=== PATIENT | female | born 1975 | race Caucasian/White ===

== ENCOUNTER → 2020-07-07 16:02 | Outpatient (CLI) | payer OTHER, SELFPAY ==
--- NOTE | ~2020-07-07 | MM_ITS ---
EXAMINATION: MM screening kory BI w katrina HISTORY: Screening mammogram TECHNIQUE: Craniocaudal and mediolateral oblique 3-D tomosynthesis images were obtained and synthetic 2-D images were generated. CAD analysis was submitted and interpreted. COMPARISON: 03/13/2014 bilateral digital screening mammogram BREAST PARENCHYMAL COMPOSITION: There are scattered areas of fibroglandular density. FINDINGS: Mild bilateral stable asymmetry consistent with history of bilateral breast reduction in 20 07. There is no evidence of suspicious mass, calcification, or architectural distortion to suggest ma lignancy in either breast. There has been no suspicious interval change. IMPRESSION: 1. No mammographic evidence of malignancy. 2. Recommend routine screening mammography in one year. BI-RADS Category 2: Benign finding(s). Reviewed, dictated and finalized at location A. BUTCHER
== END ==
PROVIDERS: PCP Internal Medicine; Visit Provider Obstetrics & Gynecology
DX: Z12.31 Encounter for screening mammogram for malignant neoplasm of breast (principal)
CPT/HCPCS: 77063; 77067

== ENCOUNTER 2021-05-20 04:37 | Emergency (ER) | payer OTHER, SELFPAY ==
[2021-05-20] VITALS (8 sets, daily range): BP systolic 86–118; BP diastolic 54–79; PULSE 58–78; RESP 16–20; TEMP 36.9–37.2; O2SAT 93–98
--- NOTE | ~2021-05-20 | CT_ITS ---
EXAMINATION: CTA chest PE protocol DATE: 05/20/2021 08:04 INDICATION: Elevated d-dimer. COVID positive. TECHNIQUE: Computed tomography angiography (CTA) of the chest was performed with 100 mL Omnipaque-350 intravenous contrast timed to evaluate the pulmonary arteries. Coronal maximum intensity projection 3D-reconstructions were created by the technologist. Automated exposure control and iterative reconst ruction technique were employed. Exam dose: 663.14 mGy-cm total exam DLP. COMPARISON: None. FINDINGS: There is diagnostic contrast enhancement of the pulmonary arteries. There is minimal left lower lobe subsegmental pulmonary embolism. There is a focal approximately 1.6 cm area of consolidation versus mass lesion in the right upper lob e. There is an irregular area of consolidation versus mass lesion in the right lower lobe at the posteri or right infrahilar area. There is focal infiltrate and/or atelectasis in the superior segment, posterolateral right lower lobe . There is an approximately 11 x 14 mm area of consolidation or pulmonary mass lesion in the left infra hilar area. There is posterior pleural-based inferior left lower lobe consolidation. There is mild bilateral hilar and mediastinal lymph node prominence, likely reactive. Normal heart size. No pericardial or pleural effusion. No thoracic aortic aneurysm. The adrenal glands are of normal morphology. IMPRESSION: Minimal left lower lobe pulmonary embolism Focal areas of bilateral pulmonary consolidation versus mass lesion(s); short-term follow-up CT thora x imaging is recommended. Reviewed, dictated and finalized at Location A. Reviewed, dictated and finalized at location A. F ACCOUNTANT IMPRESSION: Minimal left lower lobe pulmonary embolism Focal areas of bilateral pulmonary consolidation versus mass lesion(s); short-t erm follow-up CT thorax imaging is recommended.
--- NOTE | 2021-05-20 04:59 | ED.WEAKNESS ---
HPI - Weakness General Chief complaint: Weakness Stated complaint: weakness Time Seen by Provider: 05/20/21 04:59 Source: patient History of Present Illness HPI Narrative: 45-year-old female with a history of endometriosis, primary infertility, iron deficiency anemia, COVID diagnosed 7 days ago with upper respiratory symptoms for the past 14 days presents to the ER with -- generalized weakness -- nausea with 2 episodes of vomiting -- feels dehydrated with dry mouth Complaint: generalized weakness Onset (ago): hour(s) ( started an hour ago when she woke) Duration: constant Location: generalized Migration: none Severity: mild Relieving factors: none Exacerbating factors: none Associated symptoms: nausea/vomiting Related Data Home Medications Medication Instructions Recorded Confirmed ferrous sulfate 325 mg PO DAILY 05/20/21 05/22/21 omeprazole 20 mg PO DAILY 05/20/21 05/31/21 topiramate 100 mg PO ONCE 05/20/21 05/31/21 Allergies Allergy/AdvReac Type Severity Reaction Status Date / Time amoxicillin Allergy Unknown Verified 05/31/21 12:30 tramadol Allergy Unknown Verified 05/31/21 12:30 Review of Systems Review of Systems: All systems reviewed & are unremarkable except as noted in HPI and below Constitutional: Constitutional: Reports as per HPI and Reports no additional constitutional complaints Eyes: Eyes: Reports as per HPI and Reports no additional eye complaints ENT: Reports system reviewed and no additional complaints, except as documented Cardiovascular: Cardiovascular: Reports as per HPI and Reports no additional cardiovascular complaints Respiratory: Respiratory: Reports as per HPI and Reports no additional respiratory complaints Gastrointestinal: Gastrointestinal: Reports as per HPI, Reports nausea and Reports vomiting Genitourinary: Genitourinary: Reports no additional female genitourinary complaints Musculoskeletal: Musculoskeletal: Reports no additional musculoskeletal complaints Integumentary/Breasts: Skin/Breast: Reports system reviewed and no additional complaints, except as docu Neurologic: Reports system reviewed and no additional complaints, except as documented Psychiatric: Psychiatric: Reports no additional psychiatric complaints Endocrine: Endocrine: Reports no additional endocrine complaints Hematologic/Lymphatic: Hematologic/Lymphatic: Reports no additional hematologic/lymphatic complaints Allergic/Immunologic: Allergic/Immunologic: Reports no additional allergic/immunologic complaints PMFSH Past Medical History Medical History Endometriosis Iron deficiency anemia Exam Const: General: no acute distress HENMT: Head: normal to inspection Eyes: Conjunctivae: conjunctivae normal Pupils: Equal, round and reactive pupils present Neck: Neck: normal visual inspection Chest: Chest palpation & inspection: normal inspection of the chest Resp: Effort & Inspection: normal respiratory effort Auscultation: clear to auscultation bilaterally Cardio: Rate: regular rate Rhythm: regular rhythm GI: GI Palp: Yes Soft to palpation : General: Yes no CVA tenderness Back/Spine/Pelvis: Back: no CVA tenderness Skin: General skin exam: normal color Rashes: no rashes Neuro: General: patient oriented x3, moves all extremities, no meningeal signs and no focal motor deficits Speech: normal speech Extrem: General: normal to inspection Psych: Appearance: grossly normal Mental Status: mental status grossly normal Thought content: Yes Normal thought content present Course Course Emergency Course: patient's stay in the ER was unremarkable. patient remained afebrile and hemodynamically stable. Vital Signs Vital signs: Vital Signs Temperature 36.9 C 05/20/21 04:57 Pulse Rate 58 L 05/20/21 04:57 Respiratory Rate 16 05/20/21 04:57 Blood Pressure 86/54 L 05/20/21 04:57 Pulse Oximetry 95 05/20/21 04:5
--- NOTE | 2021-05-20 05:15 | ECG_ITS ---
Measurements Intervals [place] Rate: 67 P: 35 IA: 144 QRS: 1 QRSD: 102 T: -9 QT: 402 QTc: 425 Interpretive Statements SINUS RHYTHM MINIMAL Q WAVES- HIGH LATERAL LEADS BORDERLINE ST-T WAVE ABNORMALITY- INFERIOR LEADS BORDERLINE ECG Electronically Signed On 05-20-2021 9:09:00 VALVE MAKER by Kashif Crowell D.O.
[2021-05-20 06:01] LABS: Hematocrit 39.1 % (35.0-49.0); Hemoglobin 11.6 g/dL (12.0-15.0); Mean Corpuscular HGB Conc 29.7 g/dL (32.0-36.0); Mean Corpuscular Volume 77.6 fL (78.0-102.0); Platelet Count Result 232 K/mm3 (150-420); Red Blood Count 5.04 M/mm3 (4.20-5.40); Red Cell Distribution Width 15.7 % (11.6-14.4); White Blood Count 3.7 K/mm3 (4.8-10.8)
[2021-05-20] MEDS: LACTATED RINGERS 1,000 ML 1000 ML IV CONT (06:06)
[2021-05-20 06:15] LABS: Alanine Aminotransferase 97 U/L (14-59); Albumin Level 3.4 g/dL (3.4-5.0); Alkaline Phosphatase 172 U/L (46-116); Anion Gap 11 mmol/L (8-16); Aspartate Amino Transferase 45 U/L (15-37); Bilirubin,Total 0.2 mg/dL (0.00-1.00); Blood Urea Nitrogen 10 mg/dL (7-18); CRP 0.5 mg/dL (0.0-0.9); Calcium 8.5 mg/dL (8.5-10.1); Carbon Dioxide 22 mmol/L (21-32); Chloride 108 mmol/L (98-108); Estimated CRCL calculation 74 ml/min; Estimated Glomerular Filt Rate > 60; Ferritin 23 ng/mL (8-252); Glucose 107 mg/dL (70-99); Osmolality Calculated 291 mOsm/kg (285-295); Potassium 3.8 mmol/L (3.5-5.1); Sodium 141 mmol/L (136-145); Total Protein 6.7 g/dL (6.4-8.2); Troponin I 4.3 ng/L (0.00-60.4)
[2021-05-20 06:19] LABS: D Dimer 0.56 mg/L (0.19-0.50)
[2021-05-20 06:20] LABS: NT Pro B Type Natriuretic Pept 109 pg/mL (0-125)
[2021-05-20 06:30] LABS: SARS-CoV-2 RNA PCR Positive (Negative)
[2021-05-20 06:32] LABS: Band Neutrophils Percent 0 % (0-6); Lymphocytes Absolute Manual 1.18 K/mm3 (1.1-4.5); Lymphocytes Percent Manual 32 % (18-44); Neutrophils Absolute Manual 2.33 K/mm3 (1.7-7.2); Neutrophils Percent Manual 63 % (46-73); Total Cells Counted 100
[2021-05-20 06:33] LABS: Basophils Percent Manual 0 % (0-1); Eosinophils Percent Manual 0 % (1-6); Monocytes Absolute Manual 0.14 K/mm3 (0.1-0.90); Monocytes Percent Manual 4 % (3-9); Platelet Estimate Adequate (Adequate)
[2021-05-20 06:58] LABS: Add Urine Microscopic? NO; Appearance Urine Clear (Clear); Bilirubin Urine Negative (Negative); Blood Urine Negative (Negative); Color Urine Yellow (Yellow); Glucose Urine UA Negative (Negative); Ketones Urine Negative (Negative); Leukocyte Esterase Ur Negative (Negative); Nitrate Urine Negative (Negative); Protein Urine Negative (Negative); Urobilinogen Urine 0.2 mg/dL (0.2-1.0); pH Urine 5.5 (5.0-8.0)
[2021-05-20 07:00] LABS: Pregnancy On Board Control Positive; Urine Pregnancy Test Negative
--- NOTE | 2021-05-20 08:04 | ED.FALL ---
- Fall General Chief Complaint: Weakness Stated Complaint: weakness Time Seen by Provider: 05/20/21 04:59 Source: patient Mode of arrival: ambulatory Limitations: no limitations Related Data Home Medications Medication Instructions Recorded Confirmed ferrous sulfate 325 mg PO DAILY 05/20/21 05/20/21 omeprazole 20 mg PO DAILY 05/20/21 05/20/21 topiramate 100 mg PO ONCE 05/20/21 05/20/21 Allergies Allergy/AdvReac Type Severity Reaction Status Date / Time No Known Allergies Allergy Verified 03/19/13 08:03 [facility] Past Medical History Medical History (Updated 05/20/21 @ 07:04 by Yasmani Sepulveda MD) Endometriosis Iron deficiency anemia Course Vital Signs Vital signs: Vital Signs Temperature 36.9 C 05/20/21 04:57 Pulse Rate 58 L 05/20/21 04:57 Respiratory Rate 16 05/20/21 04:57 Blood Pressure 86/54 L 05/20/21 04:57 Pulse Oximetry 95 05/20/21 04:57 Temperature 36.9 C 05/20/21 04:57 Pulse Rate 66 05/20/21 06:08 Respiratory Rate 16 05/20/21 05:08 Blood Pressure 86/54 L 05/20/21 04:57 Pulse Oximetry 95 05/20/21 05:08 - Fall Lab Data Result diagrams: 05/20/21 05:31 05/20/21 05:31 Labs: Lab Results 05/20/21 05/20/21 05/20/21 Range/Units 05:31 05:31 05:31 WBC 3.7 L (4.8-10.8) K/mm3 RBC 5.04 (4.20-5.40) M/mm3 Hgb 11.6 L (12.0-15.0) g/dL Hct 39.1 (35.0-49.0) % MCV 77.6 L (78.0-102.0) fL MCH 23.0 L (27.0-31.0) pg MCHC 29.7 L (32.0-36.0) g/dL RDW 15.7 H (11.6-14.4) % Plt Count 232 (150-420) K/mm3 MPV 10.0 (9.2-11.8) fl Immature Gran % (Auto) Not Reportable Neut % (Auto) Not Reportable Lymph % (Auto) Not Reportable [place] % (Auto) Not Reportable Eos % (Auto) Not Reportable Baso % (Auto) Not Reportable Lymph # (Auto) Not Reportable [place] # (Auto) Not Reportable Eos # (Auto) Not Reportable Baso # (Auto) Not Reportable Abs Immat Gran (auto) Not Reportable Absolute Neuts (auto) Not Reportable Absolute Nucleated RBC Not Reportable Total Counted 100 Neutrophils % (Manual) 63 (46-73) % Band Neutrophils % 0 (0-6) % Lymphocytes % (Manual) 32 (18-44) % Monocytes % (Manual) 4 (3-9) % Eosinophils % (Manual) 0 L (1-6) % Basophils % (Manual) 0 (0-1) % Nucleated RBC % Not Reportable Abs Neuts (Manual) 2.33 (1.7-7.2) K/mm3 Abs Lymphs (Manual) 1.18 (1.1-4.5) K/mm3 Abs Monocytes (Manual) 0.14 (0.1-0.90) K/mm3 Absolute Eos (Manual) 0.00 L (0.02-0.5) K/mm3 Abs Basophils (Manual) 0.00 (0-0.1) K/mm3 Platelet Estimate Adequate (Adequate) D-Dimer (0.19-0.50) mg/L Sodium (136-145) mmol/L Potassium (3.5-5.1) mmol/L Chloride (98-108) mmol/L Carbon Dioxide (21-32) mmol/L Anion Gap (8-16) mmol/L BUN (7-18) mg/dL Creatinine (0.55-1.02) mg/dL Estim Creat Clear Calc ml/min Estimated GFR (59 - ) Glucose (70-99) mg/dL Calculated Osmolality (285-295) mOsm/kg Calcium (8.5-10.1) mg/dL Ferritin (8-252) ng/mL Total Bilirubin (0.00-1.00) mg/dL AST (15-37) U/L ALT (14-59) U/L Alkaline Phosphatase (46-116) U/L Troponin I (0.00-60.4) ng/L C-Reactive Protein (0.0-0.9) mg/dL NT-Pro-B Natriuret Pep 109 (0-125) pg/mL Total Protein (6.4-8.2) g/dL Albumin (3.4-5.0) g/dL Urine Color (Yellow) Urine Appearance (Clear) Urine pH (5.0-8.0) Ur Specific [place] (1.010-1.020) Urine Protein (Negative) Urine Glucose (UA) (Negative) Urine Ketones (Negative) Ur Blood (Man) (Negative) Urine Nitrate (Negative) Urine Bilirubin (Negative) Urine Urobilinogen (0.2-1.0) mg/dL Ur Leukocyte Esterase (Negative) Urine Test SARS-CoV-2 RNA (RT-PCR) Positive A (Negative) 05/20/21 05/20/21 05/20/21 Range/Uni
[2021-05-20] MEDS: SODIUM CHLORIDE 0.9% IV 1,000 ML 999 ML IV CONT (08:55)
[2021-05-20 10:45] LABS: Partial Thromboplastin Time 27.4 SEC (23.90-30.70); Prothrombin Time 10.5 Seconds (9.50-12.10)
== END 2021-05-20 11:00 | disposition home or self-care (01) ==
PROVIDERS: Internal Medicine Critical Care Medicine; Emergency Provider Emergency Medicine; PCP Internal Medicine
DX: U07.1 COVID-19 (principal); R74.01 Elevation of levels of liver transaminase levels
CPT/HCPCS: 36415; 71275; 80053; 81003; 81025; 82728; 83880; 84484; 85025; 85380; 85610; 85730; 86140; 93005; 96360; 96361; 99283; 99284; C9803; J7030; J7120; Q9967; U0003; U0005

== ENCOUNTER 2021-05-22 19:57 | Emergency (ER) | payer OTHER, SELFPAY ==
--- NOTE | ~2021-05-22 | CT_ITS ---
EXAMINATION: CT abdomen pelvis w con INDICATION: Weakness, persistent nausea TECHNIQUE: Computed tomographic images of the abdomen and pelvis were obtained after the administrati on of 100 cc of Omnipaque 350 intravenous contrast. The dose-length product (DLP) was 1007.82 mGy-cm. Automated exposure control and iterative reconstruction technique were employed. COMPARISON: None available FINDINGS: There are dependent airspace opacities of the left lower lobe. The liver, spleen, pancreas, gallbladder, and adrenal glands are normal. There is a 3 mm nonobstructing stone of the left kidney lower pole. The right kidney is unremarkable. No pathologically enlarged abdominal or pelvic lymph no elliott are identified. There is no free intraperitoneal gas or evidence of bowel obstruction. The append ix is normal. IMPRESSION: 1. No CT correlate for the patient's symptoms. Reviewed, dictated and finalized at location F. ABORATING SUPERVISING PHYSICIAN
[2021-05-22 20:29] VITALS: BP 108/68; PULSE 53; RESP 18; TEMP 37; O2SAT 95
[2021-05-22 21:14] LABS: Basophils Absolute Auto 0.02 K/mm3 (0.00-0.10); Basophils Percent Auto 0.3 % (0.0-1.0); Eosinophils Absolute Auto 0.09 K/mm3 (0.02-0.50); Eosinophils Percent Auto 1.4 % (1.0-6.0); Hematocrit 38.7 % (35.0-49.0); Hemoglobin 11.5 g/dL (12.0-15.0); Immature Granulocyte Absolute 0.01 K/mm3 (0.00-0.00); Immature Granulocyte Percent A 0.2 % (0.0-0.0); Lymphocytes Absolute Auto 2.64 K/mm3 (1.10-4.50); Lymphocytes Percent Auto 42.2 % (18.0-42.0); Mean Corpuscular HGB Conc 29.7 g/dL (32.0-36.0); Mean Corpuscular Volume 77.6 fL (78.0-102.0); Mean Platelet Volume 9.2 fl (9.2-11.8); Monocytes Absolute Auto 0.32 K/mm3 (0.10-0.90); Monocytes Percent Auto 5.1 % (2.0-11.0); Neutrophils Absolute Auto 3.2 K/mm3 (1.7-7.2); Neutrophils Percent Auto 50.8 % (50.0-70.0); Platelet Count Result 285 K/mm3 (150-420); Red Blood Count 4.99 M/mm3 (4.20-5.40); Red Cell Distribution Width 15.7 % (11.6-14.4); White Blood Count 6.3 K/mm3 (4.8-10.8)
[2021-05-22] MEDS: ONDANSETRON INJ 4 MG/2 ML VIAL IV PUSH (21:14)
[2021-05-22 21:15] VITALS: PULSE 52
[2021-05-22] MEDS: PANTOPRAZOLE SODIUM IV 40 MG VIAL IV PUSH (21:15)
[2021-05-22] MEDS: SODIUM CHLORIDE 0.9% IV 1,000 ML 999 ML IV CONT (21:15)
[2021-05-22 21:24] LABS: Add Urine Microscopic? NO; Appearance Urine Clear (Clear); Bilirubin Urine Negative (Negative); Blood Urine Negative (Negative); Color Urine Light Yellow (Yellow); Glucose Urine UA Negative (Negative); Ketones Urine Negative (Negative); Leukocyte Esterase Ur Negative (Negative); Nitrate Urine Negative (Negative); Protein Urine Negative (Negative); Urobilinogen Urine 0.2 mg/dL (0.2-1.0)
[2021-05-22 21:29] LABS: Alanine Aminotransferase 68 U/L (14-59); Albumin Level 3.5 g/dL (3.4-5.0); Alkaline Phosphatase 152 U/L (46-116); Anion Gap 10 mmol/L (8-16); Aspartate Amino Transferase 28 U/L (15-37); Bilirubin,Total 0.3 mg/dL (0.00-1.00); Blood Urea Nitrogen 12 mg/dL (7-18); Carbon Dioxide 27 mmol/L (21-32); Chloride 108 mmol/L (98-108); Estimated CRCL calculation 75 ml/min; Estimated Glomerular Filt Rate > 60; Glucose 98 mg/dL (70-99); Lipase 163 U/L (73-393); Osmolality Calculated 299 mOsm/kg (285-295); Potassium 3.6 mmol/L (3.5-5.1); Sodium 145 mmol/L (136-145); Total Protein 6.9 g/dL (6.4-8.2)
[2021-05-22 21:35] LABS: Calcium 8.8 mg/dL (8.5-10.1); Serum Qual hCG Negative
[2021-05-22 21:36] LABS: SPREG INTERNAL CONTROL Positive
--- NOTE | 2021-05-22 23:12 | ED.WEAKNESS ---
HPI - Weakness General Chief complaint: Weakness Stated complaint: dehydrated Time Seen by Provider: 05/22/21 20:01 Source: patient, family and RN notes reviewed Mode of arrival: ambulatory Limitations: no limitations History of Present Illness HPI Narrative: mostly nausea and diarrhea stools. no acute vomiting or documented fever. Onset (ago): day(s) (1) Duration: progressively worsening Migration: none Severity: mild Severity scale (1-10): 4 Relieving factors: none Exacerbating factors: none Associated symptoms: headaches, nausea/vomiting and other (diarrhea.) Related Data Home Medications Medication Instructions Recorded Confirmed ferrous sulfate 325 mg PO DAILY 05/20/21 05/22/21 omeprazole 20 mg PO DAILY 05/20/21 05/22/21 topiramate 100 mg PO ONCE 05/20/21 05/22/21 Allergies Allergy/AdvReac Type Severity Reaction Status Date / Time No Known Allergies Allergy Verified 03/19/13 08:03 Review of Systems Review of Systems: All systems reviewed & are unremarkable except as noted in HPI and below PMFSH Past Medical History Medical History Endometriosis Iron deficiency anemia Exam Const: General: healthy appearing, no acute distress and alert Nutritional Appearance: well nourished Orientation/consciousness: patient oriented x3 Limitations: no limitations HENMT: Head: normal to inspection Ears: external ears normal and TM's normal bilaterally General nose exam: Normal external nose present and Normal nares present Mouth: Yes lip normal and Yes moist mucous membranes Teeth and gingiva: dentition normal Eyes: Conjunctivae: conjunctivae normal Pupils: Equal, round and reactive pupils present EOM: EOMs intact bilaterally Neck: Neck: normal visual inspection and no lymphadenopathy Chest: Chest palpation & inspection: normal inspection of the chest Resp: Effort & Inspection: normal respiratory effort Auscultation: clear to auscultation bilaterally Cardio: Rate: regular rate Rhythm: regular rhythm GI: GI Palp: Yes Soft to palpation and No Tenderness to palpation present (GI) Percussion: Yes normal to percussion Auscultation: normal bowel sounds : General: Yes bladder normal to palpation and Yes no CVA tenderness Back/Spine/Pelvis: Back: no CVA tenderness Skin: General skin exam: normal color Rashes: no rashes Neuro: General: patient oriented x3, moves all extremities, no meningeal signs, no focal motor deficits and CN's II-XI intact bilaterally Extrem: General: normal to inspection and no pedal edema Psych: Appearance: grossly normal and well kempt Mental Status: mental status grossly normal Affect: normal affect Attitude: cooperative Thought content: Yes Normal thought content present Course Course Emergency Course: Pt was stable in the ED. no acute GI loss. Reevaluation(s) Reevaluation #1: VSS. no acute pain. no GI loss. Date: 05/22/21 Time: 21:05 Vital Signs Vital signs: Vital Signs Temperature 37.0 C 05/22/21 20:29 Pulse Rate 53 L 05/22/21 20:29 Respiratory Rate 18 05/22/21 20:29 Blood Pressure 108/68 05/22/21 20:29 Pulse Oximetry 95 05/22/21 20:29 Temperature 36.7 C 05/23/21 00:08 Pulse Rate 54 L 05/23/21 00:08 Respiratory Rate 14 05/23/21 00:08 Blood Pressure 132/77 05/23/21 00:08 Pulse Oximetry 98 05/23/21 00:08 MDM - Weakness Differential Diagnosis Differential diagnosis: Likely anemia and dehydration Medical Records Attestation: I reviewed the patient's medical records. Lab Data Attestation: I reviewed the patient's lab results. Result diagrams: 05/22/21 20:56 05/22/21 20:56 Labs: Lab Results 05/22/21 05/22/21 05/22/21 Range/Units 20:56 20:56 21:21 WBC 6.3 (4.8-10.8) K/mm3 RBC 4.99 (4.20-5.40) M/mm3 Hgb 11.5 L (12.0-15.0) g/dL Hct 38.7 (35.0-49.0) % MCV 77.6 L (78.0-102.0) fL MCH 23.0 L (27.0-31.
[2021-05-22] MEDS: ACETAMINOPHEN 325 MG TABLET 650 MG PO (23:41)
[2021-05-23 00:08] VITALS: BP 132/77; PULSE 54; RESP 14; TEMP 36.7; O2SAT 98
== END 2021-05-23 00:13 | disposition home or self-care (01) ==
PROVIDERS: Emergency Provider Emergency Medicine; PCP Internal Medicine
DX: K52.9 Noninfective gastroenteritis and colitis, unspecified (principal)
CPT/HCPCS: 36415; 74177; 80053; 81003; 83690; 84703; 85025; 96361; 96374; 96375; 99283; 99284; A9270; C9113; J2405; J7030; Q9967

== ENCOUNTER 2021-05-31 12:02 | Emergency (ER) | payer OTHER, SELFPAY ==
--- NOTE | ~2021-05-31 | CT_ITS ---
EXAMINATION: CTA chest PE protocol DATE: 05/31/2021 13:18 INDICATION: COVID positive. Left arm/axillary pain. Recent pulmonary embolism. TECHNIQUE: Computed tomography (CT) pulmonary angiogram of the chest was performed with 100 mL Omnipa que-350 intravenous contrast. Additional 3D reconstructions utilizing coronal maximum intensity proje ction (MIP) were performed. Automated exposure control and iterative reconstruction technique were em ployed. The dose-length product was 764.26 mGy-cm. COMPARISON: 05/20/2021 FINDINGS: Excellent contrast opacification of the pulmonary arteries. There is mild streak artifact from dense contrast in the superior vena cava and right atrium. Minimal scattered respiratory motion artifact wh ich does not significantly limit evaluation. No pulmonary embolism. Near complete resolution of the p rior bilateral patchy groundglass opacities with minimal residual opacities at the site of a prior la rger more dense region of consolidation in the left lower lobe consistent with improving pneumonia. No new airspace opacities, pulmonary edema or pleural effusion. Heart size is normal. No pericardial effusion. Thoracic aorta is normal in caliber with no dissection. No pathologically enlarged thoracic lymphadenopathy. IMPRESSION: 1. No pulmonary embolism. 2. Near complete resolution of prior patchy bilateral lung disease with minimal residual opacities in the posterior left lower lobe consistent with improving pneumonia. Reviewed, dictated and finalized at location B. EYOR HELPER
[2021-05-31 12:23] VITALS: BP 125/72; PULSE 57; RESP 18; TEMP 36.1; O2SAT 97
--- NOTE | 2021-05-31 12:31 | ECG_ITS ---
Measurements Intervals [place] Rate: 56 P: 55 FL: 153 QRS: 25 QRSD: 105 T: 14 QT: 422 QTc: 410 Interpretive Statements SINUS BRADYCARDIA DELAYED PRECORDIAL R/S TRANSITION MINIMAL Q WAVES- HIGH LATERAL LEADS BORDERLINE ST-T WAVE ABNORMALITY- ANT/INF LEADS BORDERLINE ECG Electronically Signed On 05-31-2021 13:28:44 HEALTH PROFESSOR by Kashif Crowell D.O.
[2021-05-31 13:06] LABS: Basophils Absolute Auto 0.06 K/mm3 (0.00-0.10); Basophils Percent Auto 0.9 % (0.0-1.0); Eosinophils Absolute Auto 0.14 K/mm3 (0.02-0.50); Eosinophils Percent Auto 2.2 % (1.0-6.0); Hematocrit 40.1 % (35.0-49.0); Hemoglobin 11.9 g/dL (12.0-15.0); Immature Granulocyte Absolute 0.02 K/mm3 (0.00-0.00); Immature Granulocyte Percent A 0.3 % (0.0-0.0); Lymphocytes Absolute Auto 2.02 K/mm3 (1.10-4.50); Mean Corpuscular HGB Conc 29.7 g/dL (32.0-36.0); Mean Corpuscular Hemoglobin 22.8 pg (27.0-31.0); Mean Corpuscular Volume 76.8 fL (78.0-102.0); Mean Platelet Volume 9.6 fl (9.2-11.8); Monocytes Absolute Auto 0.47 K/mm3 (0.10-0.90); Monocytes Percent Auto 7.2 % (2.0-11.0); Neutrophils Absolute Auto 3.8 K/mm3 (1.7-7.2); Neutrophils Percent Auto 58.4 % (50.0-70.0); Platelet Count Result 366 K/mm3 (150-420); Red Blood Count 5.22 M/mm3 (4.20-5.40); Red Cell Distribution Width 15.8 % (11.6-14.4); White Blood Count 6.5 K/mm3 (4.8-10.8)
[2021-05-31] MEDS: ACETAMINOPHEN 500 MG TABLET 1000 MG PO (13:17)
[2021-05-31 13:20] LABS: Partial Thromboplastin Time 29.6 SEC (23.90-30.70)
[2021-05-31 13:24] LABS: Alanine Aminotransferase 114 U/L (14-59); Albumin Level 3.9 g/dL (3.4-5.0); Alkaline Phosphatase 175 U/L (46-116); Anion Gap 12 mmol/L (8-16); Aspartate Amino Transferase 47 U/L (15-37); Bilirubin,Total 0.3 mg/dL (0.00-1.00); Blood Urea Nitrogen 14 mg/dL (7-18); Calcium 9.7 mg/dL (8.5-10.1); Carbon Dioxide 24 mmol/L (21-32); Chloride 106 mmol/L (98-108); Estimated CRCL calculation 81 ml/min; Estimated Glomerular Filt Rate > 60; Glucose 101 mg/dL (70-99); Osmolality Calculated 294 mOsm/kg (285-295); Sodium 142 mmol/L (136-145); Total Protein 7.5 g/dL (6.4-8.2)
--- NOTE | 2021-05-31 13:35 | ED.EXTPRO ---
HPI - Extremity Problem General Chief complaint: Extremity Problem,Nontraumatic Stated complaint: throbbing in left and armpit Source: patient and family Mode of arrival: ambulatory Limitations: no limitations History of Present Illness HPI Narrative: this is a 45-year-old female that was recently diagnosed with a pulmonary embolism and was started on apixaban, presents with a aching and throbbing sensation under her left arm there is no redness no swelling no abscess formation no cysts, patient has been working out and caused pain to her left underarm, currently there is no shortness of breath no fever chills no chest pain or tightness no nausea vomiting no abdominal pain no flank pain has good range of motion in her left arm although it is tender under the left arm. There is no numbness or tingling has good range of motion, has brisk pulses on the left, with no swelling no redness in the left arm. Complaint: extremity pain Onset (ago): day(s) Pain Consistency: intermittent Location: left and upper extremity Severity scale (1-10): 3 Quality: aching Related Data Home Medications Medication Instructions Recorded Confirmed ferrous sulfate 325 mg PO DAILY 05/20/21 05/22/21 omeprazole 20 mg PO DAILY 05/20/21 05/31/21 topiramate 100 mg PO ONCE 05/20/21 05/31/21 Allergies Allergy/AdvReac Type Severity Reaction Status Date / Time amoxicillin Allergy Unknown Verified 05/31/21 12:30 tramadol Allergy Unknown Verified 05/31/21 12:30 Review of Systems Review of Systems: All systems reviewed & are unremarkable except as noted in HPI and below PMFSH Past Medical History Medical History Endometriosis Iron deficiency anemia Exam Const: General: no acute distress and alert Orientation/consciousness: patient oriented x3 HENMT: Head: normal to inspection Eyes: Conjunctivae: conjunctivae normal Pupils: Equal, round and reactive pupils present EOM: EOMs intact bilaterally Direct Ophthalmoscopy: no photophobia Neck: Neck: normal visual inspection, no lymphadenopathy and no meningeal signs Chest: Chest palpation & inspection: normal inspection of the chest Resp: Effort & Inspection: normal respiratory effort Auscultation: clear to auscultation bilaterally Cardio: Rate: regular rate Rhythm: regular rhythm GI: GI Palp: Yes Soft to palpation : General: Yes no CVA tenderness Urinary Catheter: Urinary Catheter: patent and draining Back/Spine/Pelvis: Back: no CVA tenderness Skin: General skin exam: normal color Rashes: no rashes Extrem: General: normal to inspection and no pedal edema Other: Has mild tenderness with palpation under her left arm Psych: Mental Status: mental status grossly normal Affect: normal affect Course Course Emergency Course: CTA reviewed with patient and family, review showing that pulmonary embolism is resolved there is currently no pulmonary embolism and had some opacities that are resolving as well, reviewed lab findings, advised patient to continue her current dose of apixaban, and to take Tylenol extra-strength 2 to 3 times daily as needed and follow up with her primary within 1 week for further evaluation and treatment. Vital Signs Vital signs: Vital Signs Temperature 36.1 C L 05/31/21 12:23 Pulse Rate 57 L 05/31/21 12:23 Respiratory Rate 18 05/31/21 12:23 Blood Pressure 125/72 05/31/21 12:23 Pulse Oximetry 97 05/31/21 12:23 Temperature 36.1 C L 05/31/21 12:23 Pulse Rate 57 L 05/31/21 12:23 Respiratory Rate 18 05/31/21 12:23 Blood Pressure 125/72 05/31/21 12:23 Pulse Oximetry 97 05/31/21 12:23 MDM - Extremity (Nontraumatic) Lab Data Result diagrams: 05/31/21 12:59 05/31/21 12:59 Labs: Lab Results 05/31/21 05/31/21 05/31/21 Range/Units 12:59 12:59 12:59 WBC 6.5 (4.8-10.8) K/mm3 RBC 5.22 (4.20-5.40) M/mm3 Hgb 11.9 L (12.0-15.0) g/
== END 2021-05-31 13:53 | disposition home or self-care (01) ==
PROVIDERS: Emergency Provider Emergency Medicine; PCP Internal Medicine
DX: S46.912A Strain of unspecified muscle, fascia and tendon at shoulder and upper arm level, left arm, initial encounter (principal)
CPT/HCPCS: 36415; 71275; 80053; 85025; 85730; 93005; 99283; 99284; Q9967

== ENCOUNTER → 2023-04-03 08:24 | Outpatient (CLI) | payer OTHER, SELFPAY ==
--- NOTE | ~2023-04-03 | MMUS_ITS ---
Corrected Report Order # Associated See Bolded Title Corrections 04/04/2023 SLJ This report was recreated on 04/04/2023. Original report was signed by Garrick Lehman M.D. on 04/03/2023 9:28 PLANT CHANGER. EXAMINATION: MM diagnostic kory BI w katrina, US breast LT limited HISTORY: Left breast pain TECHNIQUE: Additional 3-D tomosynthesis images of the breasts were performed and synthetic 2-D images were generated. CAD analysis was submitted and interpreted. High resolution Limited left breast ultrasound was performed. COMPARISON: Comparison to multiple prior studies sequentially, with oldest reviewed study dated 03/03/2014. BREAST PARENCHYMAL COMPOSITION: Breast composed of scattered areas of fibroglandular density. There is distortion of both breasts consistent with previous breast reduction surgery. FINDINGS: MAMMOGRAPHIC FINDINGS: There are no suspicious masses, calcifications or architectural distortion in either breast to suggest malignancy. ULTRASOUND: Limited left breast ultrasound: Normal heterogeneous echotexture without focal solid or cystic mass. IMPRESSION: 1. No evidence for malignancy in either breast. 2. Routine yearly screening mammogram and regular clinical breast examination are recommended. BI-RADS Category 1: Negative Reviewed, dictated and finalized at location A. T CHANGER MTDD IMPRESSION: 1. No evidence for malignancy in either breast. 2. Routine yearly screening mammogram and regular clinical breast examination a re recommended. BI-RADS Category 1: Negative
== END ==
PROVIDERS: PCP Nurse Practitioner; Visit Provider Nurse Practitioner
DX: N64.4 Mastodynia (principal); N63.32 Unspecified lump in axillary tail of the left breast
CPT/HCPCS: 76642; 77061; 77062; 77065; 77066; G0279

== ENCOUNTER 2023-10-10 16:17 | Emergency (ER) | payer OTHER, SELFPAY ==
--- NOTE | ~2023-10-10 | CT_ITS ---
EXAMINATION: CT abdomen pelvis wo con DATE: 10/10/2023 18:19 INDICATION: Pelvic pain. Hematuria. TECHNIQUE: Computed tomography (CT) of the abdomen and pelvis was performed without intravenous contr ast. Automated exposure control and iterative reconstruction technique were employed. The dose-length product was 797.34 mGy-cm. COMPARISON: CT abdomen and pelvis 05/22/2021 FINDINGS: The visualized portions of the lung bases demonstrate mild atelectasis. No pleural effusion . The heart size is normal. No pericardial effusion. The liver, gallbladder, spleen, pancreas, adrena l glands, and right kidney are normal. There is a 3 mm stone at right ureteropelvic junction. There i s a 4 mm stone in left kidney. There is diverticulosis of the colon without evidence of diverticuliti s. There are no dilated loops of bowel. The appendix measures 9 mm and contains appendicoliths. The a ppendix measured 5 mm on the prior exam. There is no fat stranding around the appendix. No appendicea l wall thickening. There are no pathologically enlarged lymph nodes. There is no free intraperitoneal fluid. There is mild thoracic and lumbar spondylosis. IMPRESSION: 1. 3 mm stone at right ureteropelvic junction. No hydronephrosis. 2. 4 mm nonobstructing left kidney stone. 3. Appendiceal diameter of 9 mm, which is indeterminate for appendicitis. Correlate with physical exa m. Reviewed, dictated and finalized at location E. IMPRESSION: 1. 3 mm stone at right ureteropelvic junction. No hydronephrosis. 2. 4 mm nonobstructing left kidney stone. 3. Appendiceal diameter of 9 mm, which is indeterminate for appendicitis. Corre late with physical exam.
[2023-10-10 16:17] VITALS: BP 134/94; PULSE 75; RESP 18; TEMP 36.1; O2SAT 97
--- NOTE | 2023-10-10 16:28 | ED.FEMALEGU ---
HPI - Female Genitourinary General Chief complaint: Urogenital-Female Stated complaint: blood in urine, pelvic pain, and back pain Time Seen by Provider: 10/10/23 16:27 Source: patient Mode of arrival: ambulatory Limitations: no limitations History of Present Illness HPI Narrative: 48-year-old female with a history of endometriosis status post hysterectomy was diagnosed with urinary tract infection 1 week ago and prescribed cephalexin. The patient has been having hematuria. Today she presents to the ER with a 3 day history of -- suprapubic, pelvic pain and back pain without any radiation. -- Hematuria. No dysuria no fever or chills. MD elicited complaint: UTI , pelvic pain and back pain Pertinent past history: hysterectomy Onset (ago): day(s) ( 3 day) Location of symptoms: perineum, suprapubic and pelvis Severity: moderate Quality of pain: aching Consistency: constant Vaginal discharge: none Vaginal bleeding: none Exacerbating factors: none Relieving factors: none Related Data Allergies Allergy/AdvReac Type Severity Reaction Status Date / Time amoxicillin Allergy Unknown Verified 10/10/23 16:39 tramadol Allergy Dizziness Verified 10/10/23 16:39 Review of Systems Review of Systems: All systems reviewed & are unremarkable except as noted in HPI and below Constitutional: Constitutional: Reports as per HPI and Reports no additional constitutional complaints Eyes: Eyes: Reports as per HPI and Reports no additional eye complaints ENT: Reports system reviewed and no additional complaints, except as documented and Reports as per HPI Cardiovascular: Cardiovascular: Reports as per HPI and Reports no additional cardiovascular complaints Respiratory: Respiratory: Reports as per HPI and Reports no additional respiratory complaints Gastrointestinal: Gastrointestinal: Reports as per HPI and Reports no additional gastrointestinal complaints Genitourinary: Genitourinary: Reports no additional female genitourinary complaints, Reports as per HPI, Reports hematuria and Reports pelvic pain Musculoskeletal: Musculoskeletal: Reports no additional musculoskeletal complaints and Reports as per HPI Integumentary/Breasts: Skin/Breast: Reports system reviewed and no additional complaints, except as docu and Reports as per HPI Neurologic: Reports system reviewed and no additional complaints, except as documented and Reports as per HPI Psychiatric: Psychiatric: Reports no additional psychiatric complaints and Reports as per HPI Endocrine: Endocrine: Reports no additional endocrine complaints and Reports as per HPI Hematologic/Lymphatic: Hematologic/Lymphatic: Reports no additional hematologic/lymphatic complaints and Reports as per HPI Allergic/Immunologic: Allergic/Immunologic: Reports no additional allergic/immunologic complaints and Reports as per HPI [facility] Past Medical History Medical History Endometriosis Iron deficiency anemia Exam Narrative: afebrile blood pressure 134/94 Const: General: no acute distress Nutritional Appearance: well nourished Orientation/consciousness: patient oriented x3 Limitations: no limitations HENMT: Head: normal to inspection Ears: external ears normal Face/Nose/Sinus: Normal external nose present Face and sinus: normal facial exam Mouth: Yes Normal oral and palatal mucosa present Throat: posterior oropharynx normal Eyes: Conjunctivae: conjunctivae normal Pupils: Equal, round and reactive pupils present EOM: EOMs intact bilaterally Direct Ophthalmoscopy: no photophobia Neck: Neck: normal visual inspection, no lymphadenopathy and no meningeal signs Chest: Chest palpation & inspection: normal inspection of the chest Resp: Effort & Inspection: normal respiratory effort Auscultation: clear to auscultation bilaterally Cardio: Rate: regular rate Rhythm: regular rhythm GI: GI Palp: Yes Soft to palpation Other: abdo
[2023-10-10 17:34] LABS: Add Urine Microscopic? YES; Appearance Urine Clear (Clear); Bilirubin Urine Negative (Negative); Blood Urine 3+ (Negative); Color Urine Light Yellow (Yellow); Glucose Urine UA Negative (Negative); Ketones Urine Negative (Negative); Leukocyte Esterase Ur Negative LEU/UL (Negative); Nitrate Urine Negative (Negative); Protein Urine Negative (Negative); Specific Grav Ur <= 1.005 (1.010-1.020); Urobilinogen Urine 0.2 mg/dL (0.2-1.0)
[2023-10-10 17:35] LABS: Bacteria Urine Trace /hpf; Squamous Epithelial Cell Urine Rare /hpf (Few); WBC Urine None seen /hpf (0-3)
[2023-10-10 17:57] LABS: Basophils Absolute Auto 0.04 K/mm3 (0.00-0.10); Basophils Percent Auto 0.4 % (0.0-1.0); Eosinophils Absolute Auto 0.18 K/mm3 (0.02-0.50); Eosinophils Percent Auto 1.9 % (1.0-6.0); Hematocrit 40.6 % (35.0-49.0); Hemoglobin 13.1 g/dL (12.0-15.0); Immature Granulocyte Absolute 0.02 K/mm3 (0.00-0.00); Immature Granulocyte Percent A 0.2 % (0.0-0.0); Lymphocytes Absolute Auto 2.57 K/mm3 (1.10-4.50); Lymphocytes Percent Auto 27.4 % (18.0-42.0); Mean Corpuscular HGB Conc 32.3 g/dL (32-36); Mean Corpuscular Hemoglobin 27.1 pg (27.0-31.0); Mean Corpuscular Volume 83.9 fL (78.0-102.0); Mean Platelet Volume 9.1 fl (9.2-11.8); Monocytes Absolute Auto 0.49 K/mm3 (0.10-0.90); Monocytes Percent Auto 5.2 % (2.0-11.0); Neutrophils Absolute Auto 6.08 K/mm3 (1.70-7.20); Neutrophils Percent Auto 64.9 % (50.0-70.0); Platelet Count Result 291 K/mm3 (150-420); Red Blood Count 4.84 M/mm3 (4.20-5.40); Red Cell Distribution Width 13.2 % (11.6-14.4); White Blood Count 9.4 K/mm3 (4.8-10.8)
[2023-10-10 18:15] LABS: Alanine Aminotransferase 35 U/L (14-59); Albumin Level 3.7 g/dL (3.4-5.0); Alkaline Phosphatase 131 U/L (46-116); Anion Gap 5 mmol/L (4-12); Aspartate Amino Transferase 22 U/L (15-37); Bilirubin,Total 0.3 mg/dL (0.00-1.00); Blood Urea Nitrogen 18 mg/dL (7-18); Calcium 9.6 mg/dL (8.5-10.1); Carbon Dioxide 33 mmol/L (21-32); Chloride 104 mmol/L (98-108); Estimated CRCL calculation 85 ml/min; Estimated Glomerular Filt Rate > 60; Glucose 90 mg/dL (70-99); Lipase 53 U/L (16-77); Osmolality Calculated 295 mOsm/kg (285-295); Sodium 142 mmol/L (136-145)
[2023-10-10 18:17] LABS: Lactic Acid Reflex 0.5 mmol/L (0.4-2.0)
[2023-10-10] MEDS: MORPHINE SULFATE (*CRX) 4 MG/ML INJ 2 MG IM (18:50)
[2023-10-10] MEDS: ONDANSETRON HCL ODT 4 MG TABLET PO (18:51)
[2023-10-10] MEDS: TAMSULOSIN HCL 0.4 MG CAPSULE PO (19:28)
[2023-10-10 19:48] VITALS: BP 116/65; PULSE 85; RESP 18; TEMP 37; O2SAT 95
== END 2023-10-10 19:48 | disposition home or self-care (01) ==
PROVIDERS: Emergency Provider Internal Medicine Critical Care Medicine; PCP Family Medicine
DX: N20.0 Calculus of kidney (principal)
CPT/HCPCS: 36415; 74176; 80053; 81001; 83605; 83690; 85025; 96372; 99284; A9270; J2270

== ENCOUNTER 2023-11-21 16:15 | Outpatient (CLI) | payer OTHER, SELFPAY ==
[2023-11-21 16:56] LABS: Prothrombin Time 13.5 Seconds (11.1-14.7)
== END 2023-11-21 16:16 | disposition home or self-care (01) ==
LOC: ANHLAB 16:16
PROVIDERS: PCP Family Medicine; Visit Provider Urology
DX: Z01.818 Encounter for other preprocedural examination (principal); N20.0 Calculus of kidney
CPT/HCPCS: 36415; 85610; 85730; 87086; 87088

== ENCOUNTER 2023-11-28 00:47 | Day surgery (SDC) | payer OTHER, SELFPAY ==
[2023-11-20 11:46] VITALS: BMI 36.9
--- NOTE | 2023-11-20 11:58 | PC.NURSE ---
Report to the Outpatient Waiting Room, entrance under the green pavilion located off [facility], at time _0600_ on date _[id number]_. Planned Procedure Time: _0730_. Time changes happen often and if your time is changed the preop area will call you the afternoon before. - You and your visitor will be asked to self-screen and do not enter if you have any COVID symptoms. - A mask is optional within the hospital at this time. Patients may have clear liquids (water, carbonated beverages, clear teas, apple juice) until 3 hours prior to surgery with a maximum of 20 ounces. - No food from midnight until time of surgery Take the following medications with a SIP of water the morning of surgery: ____Pain medication if needed. DO NOT STOP ANY OF YOUR OTHER PRESCRIPTION MEDICATIONS PRIOR TO SURGERY ?EXCEPT THE FOLLOWING Medications to discontinue per physician None Date to take last dose Please no make-up, nail czech, hairspray, perfume, deodorant, or body powder the day of surgery. No jewelry (including any body piercings) or valuables the day of surgery, leave them at home. Please take a shower or bath the night before, or the morning of, surgery with an antibacterial soap. Wear comfortable, loose fitting clothing. - Jewelry must be removed prior to entering the operating room. Rings and piercings that are not removed may be cut off. - The hospital will not accept responsibility for valuables. - Please leave all valuables, including medications, at home the day of surgery. If you are going home after surgery, a licensed package delivery driver must drive you home. - NO public transportation without another adult if you receive anesthesia. - We recommend that an adult stay with you for 24 hours following discharge. - We also recommend that you do not drive, make important decision, drink alcoholic beverages, or take any drugs that were not prescribed by your health care provider for at least 24 hours after your discharge time. Follow any additional instructions given to you from your surgeon. If you or anyone in your household have experienced Covid symptoms in the past week, please notify your surgeon or the nurse liaison at the phone number below for possible testing. Telephone instructions given to _Raúlnato__and asked if any additional questions and then verbalized understanding. Patient advised to call surgeon office or pre surgery nurse liaison [phone] if any additional questions.
[2023-11-28] VITALS (10 sets, daily range): BP systolic 92–150; BP diastolic 60–98; PULSE 51–94; RESP 14–18; TEMP 36.2–36.4; O2SAT 94–100
--- NOTE | ~2023-11-28 | XR_ITS ---
Supine and upright views of the abdomen Clinical history: Lithotripsy COMPARISON: 06/28/2009 Findings: Bowel gas pattern is nonspecific. No evidence for obstruction or free air. Possible 3 mm mi d right ureteral stone. Osseous structures are intact. Impression: Possible 3 mm mid right ureteral stone. Reviewed, dictated and finalized at [facility]. Impression: Possible 3 mm mid right ureteral stone.
[2023-11-28] MEDS: LACTATED RINGERS 1,000 ML 30 ML IV CONT ×2 (06:36→09:14)
--- NOTE | 2023-11-28 06:36 | WPDHPUPDATE1 ---
History and Physical Update Update Date/Time: 11/28/23 06:36 History and Physical has been reviewed, including an updated exam of the patient. There are NO changes in the patient's condition. Risks, benefits, and alternatives have been discussed and questions answered. Patient agrees to proceed with procedure.
--- NOTE | 2023-11-28 06:45 | WPDANESEPPF ---
Anes - Initial Pre Proc Eval Procedure: Operation Date: 11/28/23 07:30 Proposed Procedures p Left Ureteral Extracorporeal Shock Wave Lithotripsy - Fan Encarnacion MD Date/Time: 11/28/23 06:45 Surgeon: Fan Encarnacion MD Pre Op Diagnosis: left ureteral stone Patient Data Age: 48 Gender: F Height: 1.63 m Weight: 97.7 kg Allergies Allergy/AdvReac Type Severity Reaction Status Date / Time amoxicillin Allergy Other Verified 11/28/23 06:21 tramadol Allergy Dizziness Verified 11/28/23 06:21 Home Medications Medication Instructions Recorded Confirmed Type hydrocodone 5 mg-acetaminophen 325 1 tablet PO Q6H PRN pain #14 tabs 10/10/23 11/28/23 Rx mg tablet tamsulosin 0.4 mg capsule (Flomax) 0.4 mg PO DAILY #7 caps 10/10/23 11/28/23 Rx acetaminophen 300 mg-codeine 15 mg 1 tablet PO Q6H PRN Pain 11/20/23 11/28/23 History tablet omeprazole 20 mg capsule,delayed 20 mg PO DAILY 11/20/23 11/28/23 History release Patient hx anesthesia problems: none Family hx anesthesia problems: none Results Review: All pre-operative results and documents have been reviewed as part of the pre-operative evaluation. [facility] Past Medical History Medical History (Updated 11/28/23 @ 06:50 by Chris Morocho MD) Endometriosis Iron deficiency anemia RONAL (obstructive sleep apnea) Surgical History Surgical History (Updated 11/28/23 @ 06:46 by Chris Morocho MD) H/O: hysterectomy Hx of bilateral breast reduction surgery Social History Social History Years smoked: 20 Smoking status: Current every day smoker Tobacco type: cigarettes and e-cigarettes/vaping Alcohol intake: current Living arrangements: with family Spiritual care concerns: No Anes - Eval Final PreProcedure Day of Procedure 11/28/23 06:45 Patient weight: obese Heart: regular rate and rhythm Lungs: clear to auscultation Airway: Mallampati scale class II Neurological: alert and oriented Last oral intake: >/= 8 hours ASA classification: III Emergent: no Anesthetic plan: proceed Anesthesia type and monitoring: general LMA and standard monitoring Results Review: All pre-operative results and documents have been reviewed as part of the pre-operative evaluation. Informed Consent: The patient's anesthetic plan and its attendant risks and benefits were discussed with the patient/family/POA. Questions were solicited and answers provided to the satisfaction of the patient/family/POA.
[2023-11-28] MEDS: ceFAZolin 2 GM/D5W 50 ML 2 GM/50 ML BAG IVPB (07:21)
--- NOTE | 2023-11-28 07:21 | SUR.PREOP ---
0700- After Dr. Encarnacion reviewed KUB, he stated procedure will be done on Right side. He updated pt, consent and H & P.
--- NOTE | 2023-11-28 07:39 | W.PM.PROC2 ---
Procedure Note - Detailed Date of Procedure 11/28/23 Pre-op Diagnosis Right mid ureteral stone, left renal calculus Post-op Diagnosis Same Procedure Performed Right ESWL Surgeon Fan Encarnacion MD Anesthesia General Description of Procedure The patient was brought to the operative suite where she was placed in the supine position on the Dornier lithotripsy table. The focal point of the lithotripter was placed at a 3mm right mid-ureteral calculus. A total of 3000 shocks were delivered at a power setting of 5. There appeared to be good fragmentation of the stone. The patient tolerated the procedure well and was taken to the recovery room in good condition.
[2023-11-28] MEDS: fentaNYL CITRATE INJ (*CRX) 100 MCG/2 ML VIAL 25 MCG IV PUSH ×5 (08:29→09:13)
[2023-11-28] MEDS: ONDANSETRON INJ 4 MG/2 ML VIAL IV PUSH (08:48)
--- NOTE | 2023-11-28 09:55 | SUR.PHASEII ---
Per patient and spouse she has taken oxycodone before with no adverse reaction.
[2023-11-28] MEDS: oxyCODONE HCL (*CRX) 2.5 MG TAB IR PO (09:58)
== END 2023-11-28 10:35 | disposition home or self-care (01) ==
PROVIDERS: PCP Family Medicine; Visit Provider Urology
PROC: (CPT 50590; principal; 2023-11-28 07:30)
DX: N20.1 Calculus of ureter (principal); N80.9 Endometriosis, unspecified; D50.9 Iron deficiency anemia, unspecified; G47.33 Obstructive sleep apnea (adult) (pediatric); F17.290 Nicotine dependence, other tobacco product, uncomplicated; E66.9 Obesity, unspecified; Z68.34 Body mass index [BMI] 34.0-34.9, adult; Z79.891 Long term (current) use of opiate analgesic; Z98.890 Other specified postprocedural states
CPT/HCPCS: 50590; 36415; 74018; 85610; 85730; 87086; A9270; J0690; J1100; J1596; J2250; J2405; J2704; J3010; J7120

== ENCOUNTER 2023-12-10 09:20 | Outpatient (CLI) | payer OTHER, SELFPAY ==
--- NOTE | ~2023-12-10 | XR_ITS ---
XR abdomen/kub 1V Ordering provider: Fan Encarnacion MD History: . LEFT URETERAL STONE F/U SURG November . Comparison: November 28, 2023 FINDINGS: BOWEL: Nonobstructive bowel gas pattern. ORGANOMEGALY: None. SIGNIFICANT PATHOLOGIC CALCIFICATIONS: None. Previously seen calcification the right paraspinal area is not demonstrated. OTHER: No free air is seen under the diaphragm. IMPRESSION: NO ACUTE ABDOMINAL FINDINGS. Reviewed, dictated and finalized at location A.
== END 2023-12-10 09:21 | disposition home or self-care (01) ==
LOC: ANHIMG 09:22
PROVIDERS: PCP Family Medicine; Visit Provider Urology
DX: N20.1 Calculus of ureter (principal)
CPT/HCPCS: 74018

== ENCOUNTER 2024-07-17 10:42 | Outpatient (CLI) | payer OTHER, SELFPAY ==
--- NOTE | ~2024-07-17 | MM_ITS ---
EXAMINATION: MM screening kory BI w katrina HISTORY: Screening mammogram TECHNIQUE: Craniocaudal and mediolateral oblique 3-D tomosynthesis images were obtained and synthetic 2-D images were generated. CAD analysis was submitted and interpreted. COMPARISON: 04/03/2023, 07/07/2020 BREAST PARENCHYMAL COMPOSITION:Not Dense. There are scattered areas of fibroglandular density. FINDINGS: No suspicious mass, calcification, or architectural distortion are identified in either lane ast to suggest malignancy. There has been no suspicious interval change. IMPRESSION: No mammographic evidence of malignancy. Recommend routine screening mammography in one year. BI-RADS Category 1: Negative Reviewed, dictated and finalized at location . [facility]
== END 2024-07-17 10:43 | disposition home or self-care (01) ==
PROVIDERS: PCP Family Medicine; Visit Provider Family Medicine
DX: Z12.31 Encounter for screening mammogram for malignant neoplasm of breast (principal)
CPT/HCPCS: 77063; 77067

== ENCOUNTER 2024-08-16 06:07 | Emergency (ER) | payer OTHER, SELFPAY ==
--- NOTE | ~2024-08-16 | CT_ITS ---
EXAMINATION: CT abdomen pelvis w con DATE: 08/16/2024 08:17 INDICATION: Flank pain. TECHNIQUE: Computed tomography (CT) of the abdomen and pelvis was performed with 100 mL Omnipaque 350 intravenous contrast. Automated exposure control and iterative reconstruction technique were employe d. The dose-length product was 959.49 mGy-cm. COMPARISON: CT abdomen and pelvis 10/10/2023 FINDINGS: The visualized portions of lung bases demonstrate mild atelectasis. No pleural effusion. Th e heart size is normal. No pericardial effusion. The liver, gallbladder, spleen, pancreas, adrenal gl ands, and right kidney are normal. There is a 3 mm stone in left kidney. There are no dilated loops o f bowel. The appendix is normal. There are no pathologically enlarged lymph nodes. There is no free i ntraperitoneal fluid. There is moderate lower lumbar spondylosis. There is interbody fusion from T9 t o T11. IMPRESSION: 1. Nonobstructing left kidney stone. Reviewed, dictated and finalized at location A.
--- OUTSIDE RECORDS SUMMARY | 2024-08-16 06:09 | XMS_ITS | Referral Summary ---
Author Organization [facility] Medical Office Building A Address [address] [place] [address] Care Team Providers Care Ice Hockey Coach Name Role Phone Vinnie Morales MD Primary Care Provider [phone] Encounters Date Type Department Care Team Description 07/16/2024 1:00 PM CHIEF HOSPITAL ADMINISTRATOR Office Visit [facility] [address] [address] [place] NP Acute bilateral otitis media (Primary Dx); Class 1 obesity due to excess calories without serious comorbidity with body mass index (BMI) of 34.0 to 34.9 in adult from Last 3 Months Allergies Active Allergy Reactions Criticality Noted Date Comments Amoxicillin Other (See comments) Reaction: yeast infection (bad), Tramadol Nausea only,Vomiting,Other (See comments) Low Reaction: Nausea, Vomiting, Other reaction(s): Nausea only Reaction: Nausea, Vomiting, Medications omeprazole (PriLOSEC) 20 mg capsule take 1 capsule (20MG) by oral route every day before a meal 90 3 1 Active MULTIVITAMIN ORAL Take by mouth Active ciprofloxacin-d exAMETHasone (CIPRODEX) otic suspensionIndic ations:Acute bilateral otitis media Administer 4 drops into each ear 2 (two) times a day 7.5 mL 5 Active azithromycin (ZITHROMAX) 250 mg tabletIndicatio ns:Acute bilateral otitis media Take 2 tabs (500 mg) by mouth today, than 1 tab (250 mg) daily for 4 days. 6 tablet 5 07/21/19 25 Active Problems Problem Noted Date Diagnosed Date Acute bilateral otitis media 07/16/2024 Assessment & Plan (07/16/2024 1:23 PM CHIEF HOSPITAL ADMINISTRATOR): Started on Z-pack and ciprodex drops. Will continue to monitor. Advised to use IBU or tylenol for headache. Will continue to monitor. Acute dehydration 01/14/2024 Gastroenteritis 01/14/2024 Kidney stone 01/14/2024 Muscle strain 01/14/2024 Pulmonary embolism 01/14/2024 SARS-CoV-2 positive 01/14/2024 Transaminitis 01/14/2024 Urinary tract infection 01/14/2024 Class 1 obesity due to exces s calories without serious comorbidity with body mass index (BMI) of 34.0 to 34.9 in adult 10/13/2023 Assessment & Plan (07/16/2024 1:24 PM CHIEF HOSPITAL ADMINISTRATOR): Encouraged heart healthy diet and lifestyle. Advised 150 min/week of aerobic exercise. Iron deficiency anemia 05/02/2021 Overview (05/02/2021): Added automatically from request for surgery [id number] Assessment & Plan (09/18/2021 2:14 PM CDT): Capsule endoscopy History of IBS 05/02/2021 Overview (05/02/2021): Added automatically from request for surgery [id number] Medication management 03/25/2017 Healthcare maintenance 03/25/2017 Irritable bowel syndrome 10/09/2013 Overview (08/30/2016): Spastic colon Obstructive sleep apnea syndrome 08/06/2013 Overview (08/30/2016): RONAL on CPAP Ulnar neuropathy 06/13/2011 Pain of upper extremity 06/13/2011 Cervicalgia 06/13/2011 Immunizations Immunization Administration Dates Next Due Influenza, Trivalent, IM (MDV) 02/22/2009 Influenza, Unspecified 07/16/2024(Deferr ed: Patient Refused),07/16/2024(Deferred: Patient Refused),07/16/2024(Deferred: Patient Refused),01/25/2024(Deferred: Patient Refused),01/25/2024(Deferred: Patient Refused),01/25/2024(Deferred: Patient Refused),10/13/2023(Deferred: Patient Refused),01/24/2023(Deferred: Patient Refused) Tdap 03/25/2017 Social History Tobacco Use Types Packs/Day Years Used Date Smoking Tobacco: Every Day E-cigarettes Smokeless Tobacco: Never Tobacco Cessation:Ready to Q uit: No; Counseling Given: Not Answered Alcohol Use Standard Drinks/Week Comments No 0 (1 standard drink = 0.6 oz pur e alcohol) [facility] [employer] Answer Date Recorded In the past 12 months has [employer], [email or web address], oil, or water [employer] threatened to shut off services in your home? No 10/13/2023 Humiliation, Afraid, Rape, and Kick questionnair e Answer Date Recorded Within the last year, have y ou been afraid of your partner or ex-partner? No 10/13/2023 Within the last year, have y ou been humiliated or emotionally abused in other ways by your partner or ex-partner? No Within the last year, have y ou been kicked, hit, slapped, or otherwise physically hurt by your partner or ex-partner? No 10/13/2023 Within the last year, have y ou been raped or forced to have any kind of sexual activity by your partner or ex-partner? No 10/13/2023 Social Connection and Isolat ion Panel [NHANES] Answer Date Recorded In a typical week, how many times do you talk on the phone with family, friends, or neighbors? More than three times a week 10/13/2023 How often do you get togethe r with friends or relatives? More than three times a week 10/13/2023 How often do you attend [facility] or [employer] services? Never 10/13/2023 Do you belong to any clubs o r organizations such as restorationism groups, unions, fraternal or athletic groups, or school groups? Yes 10/13/2023 How often do you attend meet ings of the clubs or organizations you belong to? 1 to 4 times per year 10/13/2023 Are you , , di vorced, , never , or living with a partner? 10/13/2023 AUDIT-C Answer Date Recorded Q1: How often do you have a drink containing alc ohol? Monthly or less 10/13/2023 Q2: How many drinks containi ng alcohol do you have on a typical day when you are drinking? 1 or 2 10/13/2023 Q3: How often do you have si x or more drinks on one occasion? Never 10/13/2023 Overall Financial Resource Strain (CARDIA) Answe r Date Recorded How hard is it for you to pa y for the very basics like food, housing, medical care, and heating? Not hard at all 10/13/2023 PHQ-2 Answer Date Recorded PHQ-2 Total Score (If total score is 3 or more points, staff should administer the PHQ-9) 0 07/16/2024 [facility] - Occupational Stress Questionnaire Answer Date Recorded Do you feel stress - tense, restless, nervous, or anxious, or unable to sleep at night because your mind is troubled all the time - these days? To some extent 10/13/2023 Exercise Vital Sign Answer Date Recorde d On average, how many days pe r week do you engage in moderate to strenuous exercise (like a brisk walk)? 7 days 10/13/2023 On average, how many minutes do you engage in exercise at this level? 20 min 10/13/2023 Hunger Vital Sign Answer Date Recorded Within the past 12 months, y ou worried that your food would run out before you got the money to buy more. Never true 10/13/19 24 Within the past 12 months, t he food you bought just didn't last and you didn't have money to get more. Never true 10/13/2023 PRAPARE - Transportation Answer Date Re corded In the past 12 months, has l ack of transportation kept you from medical appointments or from getting medications? No 09/24 In the past 12 months, has l ack of transportation kept you from meetings, work, or from getting things needed for daily living? No 10/13/2023 Housing Stability Vital Sign Answer Reji e Recorded In the last 12 months, was t here a time when you were not able to pay the mortgage or rent on time? No 10/13/2023 In the past 12 months, how m any times have you moved where you were living? 1 10/13/2023 At any time in the past 12 m [facility], were you homeless or living in a jail (including now)? No 10/13/2023 Comments Unknown Sex and Gender Information Value Date Recorded Sex Assigned at Not on file Legal Sex Female 1:37 PM CHIEF HOSPITAL ADMINISTRATOR Gender Identity Not on file Sexual Orientation Not on file Last Filed Vital Signs Vital Sign Reading Time Taken Comments Blood Pressure 118/72 07/16/2024 12:48 PM CHIEF HOSPITAL ADMINISTRATOR Pulse 105 07/16/2024 12:48 PM CHIEF HOSPITAL ADMINISTRATOR Temperature 37.2 C (98.9 F) 07/16/2024 12:48 PM CHIEF HOSPITAL ADMINISTRATOR Respiratory Rate 16 07/16/2024 12:4 8 PM CHIEF HOSPITAL ADMINISTRATOR Oxygen Saturation 95% 07/16/2024 12: 48 PM CHIEF HOSPITAL ADMINISTRATOR Inhaled Oxygen Concentration - - Weight 92.4 kg (203 lb 12.8 oz) 025 12:48 PM CHIEF HOSPITAL ADMINISTRATOR Height 162.6 cm (5' 4.02 ) 07/16/2024 1 2:48 PM CHIEF HOSPITAL ADMINISTRATOR Body Mass Index 34.96 07/16/2024 12:48 PM CHIEF HOSPITAL ADMINISTRATOR Plan of Treatment Not on file Procedures Procedure Name Priority Date/Time Associated Diagnosis Comments SCREENING MAMMOGRAM BILATERAL W VISHNU Schedule Routine, Read Routine (OP Routine) 07/17/2024 7:28 AM CHIEF HOSPITAL ADMINISTRATOR COLONOSCOPY 07/05/2021 7:18 AM CHIEF HOSPITAL ADMINISTRATOR from Last 3 Months or Most Recently Relevant to Health Maintenance Results * Screening Mammogram Bilateral W Vishnu (07/17/2024 7:28 AM CHIEF HOSPITAL ADMINISTRATOR) Anatomical Region Laterality Modality Breast Bilateral Mammography 07/17/2024 7:28 AM CHIEF HOSPITAL ADMINISTRATOR us Historical Provider MD LARKIN MAMMO PROCEDURES Roselyn l Result * COLONOSCOPY (07/05/2021 7:18 AM CHIEF HOSPITAL ADMINISTRATOR) Anatomical Region Laterality Modality Other Narrative Procedure Note Ricardo Myers MD - 07/05/2021 7:18 AM CST [facility] Patient Name: Andria Casillas Procedure Date: 07/05/2021 7:18 AM Date of : 1975 Admit Type: Outpatient Age: 46 Gender: Female Attending MD: Ricardo Myers M.D. Room: [facility]COPY ROOM 2 Note Status: Finalized Patient Profile: Refer to note in patient chart for documentation of history and physical. Procedure: Colonoscopy Indications: Last colonoscopy: February 2015, Iron deficiencyanemia Referring MD: Ayan Henry M.D. Providers: Ricardo Myers M.D. Impression: - Hemorrhoids found on perianal exam. - Diverticulosis in the sigmoid colon. - The examination was otherwise normal. - No specimens collected. Recommendation: - Discharge patient to home. - Resume previous diet. - Continue present medications. - Repeat colonoscopy in 10 years for screening purposes. - Return to primary care physician as previously scheduled. Medicines: Propofol per Anesthesia Complications: No immediate complications. Estimated Blood Loss: Estimated blood loss: none. Procedure: Pre-Anesthesia Assessment: - This assessment was completed [Time ofAssessment] prior to the administration of sedation. The benefits, risks and alternatives of theprocedure and sedation were discussed and informed consentwas obtained. All questions were answered. Please referto the signed informed consent document in the medical record. The bowel preparation used was Miralax and bisacodyl tablets via single dose instruction. The scope was passed under direct vision. TheColonoscope [id number] was introduced through the anus and advanced to the the cecum, identified by appendiceal orifice and ileocecal valve. The colonoscopy was performed without difficulty. The patient tolerated the procedure well. The qualityof the bowel preparation was excellent. Findings: Hemorrhoids were found on perianal exam. A few small-mouthed diverticula were found in the sigmoid colon. The exam was otherwise without abnormality. Electronically signed by Ricardo Myers M.D. Ricardo Myers M.D. 07/05/2021 8:08:45 AM Number of Addenda: 0 Note Initiated On: 07/05/2021 7:18 AM Procedure Code(s): --- Professional --- 07218, Colonoscopy, flexible; diagnostic, including collection of specimen(s) by brushing or washing, when performed (separateprocedure) Diagnosis Code(s): --- Professional --- K57.30, Diverticulosis of large intestine without perforation orabscess without bleeding D50.9, Iron deficiency anemia, unspecified K64.9, Unspecified hemorrhoids CPT copyright 2019 [employer]. All rights reserved. The codes documented in this report are preliminary and upon serials librarian reviewmay be revised to meet current compliance requirements. Recognized by the [employer] for promoting quality in endoscopy Ricardo Myers MD ENDOSCOPY PROCEDURES Final Re sult from Last 3 Months or Most Recently Relevant to Health Maintenance Insurance [facility] [employer] Address: [place] [address] [facility] [employer] Address: [address] [place] [address] [facility] [employer] Address: [place] [address] Advance Directives For more information, please contact: [phone] * Full Code (Latest Code Status on File) Date Activated Date Inactivated Comments 07/05/2021 7:21 AM 07/05/2021 1:09 PM * Full Code Date Activated Date Inactivated Comments 07/05/2021 7:21 AM 07/05/2021 7:21 AM Care Teams Ice Hockey Coach Relationship Specialty Start Date End Date Vinnie Morales MD [address] [place] [address] PCP - General Family Medicine 10/13/23
--- OUTSIDE RECORDS SUMMARY | 2024-08-16 06:09 | XMS_ITS | Encounter Summary ---
Author Organization [facility] Healthcare Address [address] [place] [place] [address] Care Team Providers Care Humanities Professor Name Role Phone Vinnie Morales MD Primary Care Provider [phone] Reason for Referral * MRI/CAT/PET Scan (Routine) - Closed Specialty Diagnoses / Procedures Referred By Contac t Referred To Contact Radiology Diagnoses Gross hematuria Procedures CT UROGRAM WO 3D Henry Orantes NP Phone: tel: fax: [address] [phone] Referral ID Status Reason Start Date Expiration Date Visits Re quested Visits Authorized [id number] Closed 11/12/2023 12/11/2024 1 1 Encounter Details Date Type Department Care Team (Late st Contact Info) Description 11/12/2023 Community Orders [facility] EpicCare Link Henry Orantes NP [address] [place] [phone] Gross hematuria (Primary Dx); Left ureteral stone Social History Tobacco Use Types Packs/Day Years Used Date Smoking Tobacco: Every Day E-cigarettes Smokeless Tobacco: Never Alcohol Use Standard Drinks/Week Comments No 0 (1 standard drink = 0.6 oz pur e alcohol) [facility] Utilities Answer Date Recorded In the past 12 months has th e electric, gas, oil, or water company threatened to shut off services in your [...] week 10/13/2023 How often do you attend chur ch or confucianist services? Never 10/13/2023 Do you belong to any clubs o r organizations such as zoroastrianism groups, unions, fraternal or athletic groups, or [...] points, staff should administer the PHQ-9) 0 10/13/2023 [facility] Occupat ional [facility] - Occupational Stress Questionnaire Answer Date Recorded [...] money to buy more. Never true 10/13/19 Within the past 12 months, t he [...] any time in the past 12 m [facility], were you homeless or living in a senior living (including now)? 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 Pain on left TECHNIQUE: Single radiographic view of the abdomen. COMPARISON: CT earlier today. FINDINGS: The CT demonstrated a stone of the proximal right ureter. Nonobstructing stone left kidney. There is a 3 mm calcification projecting just superior to the right L4 transverse process. This is favored to reflect the small stone seen on the CT in the ureter. No other definite stone by plain film. Contrast is seen in the bladder from the CT earlier today. Nonobstructive bowel gas pattern. IMPRESSION: There is a 3 mm calcification projecting just superior to the right L4 transverse process. This is favored to reflect the small stone seen on the CT earlier today. THIS IS AN ELECTRONICALLY VERIFIED FINAL REPORT 11/15/2023 5:07 PM - Electronically signed by Everette Joe M.D. MJ: RUFUS Report ID: [id number] Reading Location: [id number] Procedure Note Everette Joe MD - 11/15/2023 EXAM DESCRIPTION: XR KUB REASON FOR STUDY: kidney stone Pt reports h/o kidney stone on right. Pain on left TECHNIQUE: Single radiographic view of the abdomen. COMPARISON: CT earlier today. FINDINGS: The CT demonstrated a stone of the proximal right ureter. Nonobstructing stone left kidney. There is a 3 mm calcification projecting just superior to the right L4 transverse process. This is favored to reflect the small stone seen onthe CT in the ureter. No other definite stone by plain film. Contrast is seen in the bladder from the CT earlier today. Nonobstructive bowel gas pattern. IMPRESSION: There is a 3 mm calcification projecting just superior to the right L4 transverse process. This is favored to reflect the small stone seen on theCT earlier today. THIS IS AN ELECTRONICALLY VERIFIED FINAL REPORT 11/15/2023 5:07 PM - Electronically signed by Everette Joe M.D. MJ: RUFUS Report ID: [id number] Reading Location: [id number] Henry Kurtis Orantes SPA COORDINATOR IMG XR PROCEDURES Final Resu lt * CT UROGRAM WO 3D (11/13/2023 11:43 AM CDT) Anatomical Region Laterality Modality Body N/A Computed Tomogra phy 11/13/2023 1:20 PM CDT Addenda Addendum by Tylor Reid MD on 11/17/2023 11:23 AM CDT ADDENDUM: This addendum report supersedes the original report dated 11/13/[address] of the abdomen pelvis has become available from 10/10/2023. Compared to that examination, mild right pelvocaliectasis is similar and there is unchanged position of the 4 mm proximal right ureteral stone.. Additionally, the mildly dilated appendix filled with dense material, likely appendicoliths, is unchanged. Again, there is no periappendiceal fat stranding. Recommend clinical correlation. END OF ADDENDUM REPORT THIS IS AN ELECTRONICALLY VERIFIED FINAL REPORT 11/17/2023 11:23 AM Addendum Electronically signed by Tylor Reid M.D. MZ: MZ Report ID: [id number] Reading Location: [id number] Narrative 11/13/2023 1:45 PM CDT EXAM DESCRIPTION: CT UROGRAM WO 3D REASON FOR STUDY: obstructing stone Left flank pain for 2 weeks, hematuria, and increased urination Pt states has known kidney stones Requested prior images TECHNIQUE: Precontrast images of the abdomen. Abdomen and pelvis images with intravenous and without oral contrast using helical scanning technique with dynamic intravenous contrast injection. Corticomedullary, nephrographic, excretory phase images were acquired. Reconstructed coronal and sagittal MPR images reviewed. All images stored on PACS. Automated exposure control was used as a dose optimization technique for this examination. CONTRAST TYPE/DOSE: 100mL of IOVERSOL 350 MG IODINE/ML INTRAVENOUS SYRINGE injected via intravenous COMPARISON: None available REFERENCE: Per ACR white paper recommendations, unless otherwise specified no follow-up imaging is recommended for incidental renal and adrenal lesions per consensus recommendations based on imaging criteria. Further lab evaluation could be pursued based on clinical findings. FINDINGS: URINARY TRACT: KIDNEYS: There is mild right hydronephrosis secondary to a proximal right ureteral stone measuring 3 mm. There is a 4 mm left lower pole renal stone. No left hydronephrosis. There is symmetrical enhancement of the kidneys in all phases with no definite delay in the nephrogram.. In the opacified portions of the renal collecting systems, ureters and urinary bladder, there is no suspicious filling defect. No urinary bladder wall thickening is seen. No renal masses are seen.. There is a tiny nonenhancing focus at the superior pole of the left kidney, compatible with a cyst. URETERS AND BLADDER: No hydroureter. No masses or mucosal abnormalities. ABDOMEN/PELVIS: LOWER CHEST: No significant pulmonary abnormalities. No effusion. LIVER: Normal size. No identified cystic or solid masses. GALLBLADDER: Normal BILE DUCTS: No intrahepatic or extrahepatic ductal dilatation. SPLEEN: Normal size. No focal lesions. PANCREAS: Relative low attenuation at the pancreatic head intrinsically likely reflects fatty infiltration. No definite mass. No ductal dilatation. No surrounding fat stranding or fluid. ADRENALS: Normal. GI: There are scattered colonic diverticuli without evidence of acute diverticulitis. The appendix is mildly dilated to 8 mm in caliber and contains dense material, probably appendicoliths, within its lumen. However, there is no surrounding fat stranding or free fluid and no definitive mucosal hyperenhancement.. Visualized distal esophagus is unremarkable. The stomach is unremarkable. The small bowel is normal in course and in caliber and without wall thickening or evidence of obstruction. PERITONEUM: No free intraperitoneal gas or fluid is seen. 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 RETROPERITONEUM: No mass or adenopathy. REPRODUCTIVE: No significant abnormality. VASCULATURE: No venous thrombosis is seen. No aortic aneurysm. Minimal calcified athero sclerotic plaque MUSCULOSKELETAL: Multilevel degenerative disc disease in the visualized spine, most pronounced at L5-S1 where it is [id number]. No aggressive bone lesion or acute fracture is seen. OTHER: No other abnormality. IMPRESSION: 3 mm proximal right ureteral stone with mild right hydronephrosis. Symmetrical enhancement of the renal parenchyma without evidence of delayed nephrogram. 4 mm left lower pole renal stone. No left hydronephrosis. Mildly dilated appendix with dense material throughout its lumen, probably appendicoliths. However, there is no surrounding fat stranding or free fluid to suggest acute inflammation. Recommend clinical correlation and close clinical follow-up, with short interval repeat imaging as clinically indicated. THIS IS AN ELECTRONICALLY VERIFIED FINAL REPORT 11/13/2023 1:45 PM - Electronically signed by Tylor Reid M.D. MZ: NIHARIKA Report ID: [id number] Reading Location: [place] [address] Procedure Note Tylor Reid MD - 11/13/2023 EXAM DESCRIPTION: CT UROGRAM WO 3D REASON FOR STUDY: obstructing stone Left flank pain for 2 weeks, hematuria, and increased urination Pt stateshas known kidney stones Requested prior images TECHNIQUE: Precontrast images of the abdomen. Abdomen and pelvis imageswith intravenous and without oral contrast using helical scanning techniquewith dynamic intravenous contrast injection. Corticomedullary, nephrographic, excretory phase images were acquired. Reconstructed coronal and sagittalMPR images reviewed. All images stored on PACS. Automated exposure control was used as a dose optimization technique forthis examination. CONTRAST TYPE/DOSE: 100mL of IOVERSOL 350 MG IODINE/ML INTRAVENOUSSYRINGE injected via intravenous COMPARISON: None available REFERENCE: Per ACR white paper recommendations, unless otherwise specifiedno follow-up imaging is recommended for incidental renal and adrenal lesionsper consensus recommendations based on imaging criteria. Further labevaluation could be pursued based on clinical findings. FINDINGS: URINARY TRACT: KIDNEYS: There is mild right hydronephrosis secondary to a proximalright ureteral stone measuring 3 mm. There is a 4 mm left lower pole renalstone. No left hydronephrosis. There is symmetrical enhancement of the kidneysin all phases with no definite delay in the nephrogram.. In the opacified portions of the renal collecting systems, ureters and urinary bladder,there is no suspicious filling defect. No urinary bladder wall thickening isseen. No renal masses are seen.. There is a tiny nonenhancing focus at thesuperior pole of the left kidney, compatible with a cyst. URETERS AND BLADDER: No hydroureter. No masses or mucosal abnormalities. ABDOMEN/PELVIS: LOWER CHEST: No significant pulmonary abnormalities. No effusion. LIVER: Normal size. No identified cystic or solid masses. GALLBLADDER: Normal BILE DUCTS: No intrahepatic or extrahepatic ductal dilatation. SPLEEN: Normal size. No focal lesions. PANCREAS: Relative low attenuation at the pancreatic head intrinsically likely reflects fatty infiltration. No definite mass. No ductaldilatation. No surrounding fat stranding or fluid. ADRENALS: Normal. GI: There are scattered colonic diverticuli without evidence of acute diverticulitis. The appendix is mildly dilated to 8 mm in caliber and contains dense material, probably appendicoliths, within its lumen.However, there is no surrounding fat stranding or free fluid and no definitivemucosal hyperenhancement.. Visualized distal esophagus is unremarkable. Thestomach is unremarkable. The small bowel is normal in course and in caliber and without wall thickening or evidence of obstruction. PERITONEUM: No free intraperitoneal gas or fluid is seen. There is mild haziness of the central small bowel mesentery, likely sequela ofmesenteric panniculitis. RETROPERITONEUM: No mass or adenopathy. REPRODUCTIVE: No significant abnormality. VASCULATURE: No venous thrombosis is seen. No aortic aneurysm. Minimal calcified athero sclerotic plaque MUSCULOSKELETAL: Multilevel degenerative disc disease in the visualized spine, most pronounced at L5-S1 where it is [id number]. Noaggressive bone lesion or acute fracture is seen. OTHER: No other abnormality. IMPRESSION: 3 mm proximal right ureteral stone with mild right hydronephrosis. Symmetrical enhancement of the renal parenchyma without evidence ofdelayed nephrogram. 4 mm left lower pole renal stone. No left hydronephrosis. Mildly dilated appendix with dense material throughout its lumen,probably appendicoliths. However, there is no surrounding fat stranding or freefluid to suggest acute inflammation. Recommend clinical correlation and close clinical follow-up, with short interval repeat imaging as clinically indicated. THIS IS AN ELECTRONICALLY VERIFIED FINAL REPORT 11/13/2023 1:45 PM - Electronically signed by Tylor Reid M.D. MZ: NIHARIKA Report ID: [id number] Reading Location: [place] [address] Henry Orantes SPA COORDINATOR IMG CT PROCEDURES Edited Res ult - Final documented in this encounter Visit Diagnoses Diagnosis Gross hematuria- Primary Left ureteral stone Gross hematuria Left ureteral stone documented in this encounter Additional Health Concerns Infection Onset Date Last Indicated Resolved Time COVID: Suspected 01/14/2024 01/14/2024 01/14/2024 7:28 PM CDT COVID19 01/14/2024 01/14/2024 01/24/2024 3:05 AM CDT documented as of this encounter Care Teams Humanities Professor Relationship Specialty Start Date End Date Vinnie Morales MD [address] [place] [address] PCP - General Family Medicine 10/13/23 documented as of this encounter
--- OUTSIDE RECORDS SUMMARY | 2024-08-16 06:09 | XMS_ITS | Clinical Summary ---
Author Organization [facility] [employer] Address [address] [place] [address] Care Team Providers Care Scheduling Clerk Name Role Phone Ayan Henry MD Primary Care Provider [phone] Source Comments [facility] and Associated Physician Practices is amultiple site organization consisting of ambulatory clinics and hospital sitesin [place], [place], [place] and [place]. This disclosure is being madepursuant to the Care Everywhere program and may not contain all information available regarding this patient. Last updated 18.[facility] Allergies Active Allergy Reactions Criticality Noted Date Comments Amoxicillin Other Reaction: yeast infection (bad), Tramadol Other Other reaction(s): Nausea only Reaction: Nausea, Vomiting, Medications * Be aware that medications may not be up to date on this document. Alwaysverify current medications with the patient. Medication Sig Dispensed Refills Start Date End Date Status Sertraline HCl (ZOLOFT PO) Active topiramate (TOPAMAX) 25 MG tablet Take 25 mg by mouth 2 times daily Active omeprazole EC (PRILOSEC OTC) 20 MG tablet Take 20 mg by mouth daily before breakfast Active Social History Tobacco Use Types Packs/Day Years Used Date Smoking Tobacco: Never Smokeless Tobacco: Never Sex and Gender Information Value Date Recorded Sex Assigned at Not on file Gender Identity Not on file Sexual Orientation Not on file Last Filed Vital Signs Vital Sign Reading Time Taken Comments Blood Pressure 118/72 12/03/2019 9:43 AM CDT Pulse 61 12/03/2019 9:43 AM CDT Temperature 36.6 C (97.8 F) 12/03/2019 9:43 AM CDT Respiratory Rate 16 12/03/2019 9:43 AM CDT Oxygen Saturation 97% 12/03/2019 9:43 AM CDT Inhaled Oxygen Concentration - - Weight 90.7 kg (200 lb) 12/03/2019 9:43 AM CDT Height 162.6 cm (5' 4 ) 12/03/2019 9:43 AM CDT Body Mass Index 34.33 12/03/2019 9:43 AM CDT Plan of Treatment Health Maintenance Due Date Last Done Comments COLOGUARD (AGES 45-75) - COL ON CA SCREENING 1976 COLON MONITORING 1976 COLONOSCOPY - COLON CA SCREENING 1976 CT COLONOGRAPHY - COLON CA SCREENING 1976 Colorectal Cancer Screening 1976 FIT - COLON CA SCREENING 1976 FLEX SIG - COLON CA SCREENING 1976 LIPID TESTING 1976 MAMMOGRAM 1976 HIV SCREENING 1991 HEPATITIS C SCREENING 05/30/1994 DTAP/TDAP/TD VACCINES (1 - Tdap) 1995 HEPATITIS B VACCINE (1 of 3 - 19+ 3-dose series) 1995 SCREENING FOR DIABETES 02/03/2019 COVID-19 VACCINE (1 - 2023-2 5 season) 2024 INFLUENZA VACCINE (#1) 2024 02/22/2009 DEPRESSION SCREENING 05/26/2024 ZOSTER VACCINE (1 of 2) 2026 HIB VACCINE Aged Out No longer eligi ble based on patient's age to complete this topic HPV VACCINE Aged Out No longer eligi ble based on patient's age to complete this topic MENINGOCOCCAL (Group B) VACC INE SHARED DECISION-MAKING Aged Out No longer eligibl e based on patient's age to complete this topic MENINGOCOCCAL GROUPS A/C/Y/W VACCINE Aged Out No longer eligible b ased on patient's age to complete this topic PNEUMOCOCCAL VACCINE Aged Out No long er eligible based on patient's age to complete this topic Care Teams Scheduling Clerk Relationship Specialty Start Date End Date Ayan Henry MD PCP - General Internal Medicine 07/22/16
--- OUTSIDE RECORDS SUMMARY | 2024-08-16 06:09 | XMS_ITS | Clinical Summary ---
Author Organization [facility] Medical Office Building A Address [address] [place] [address] Care Team Providers Care Top Closer Name Role Phone Vinnie Morales MD Primary Care Provider [phone] [phone] Allergies Active Allergy Reactions Criticality Noted Date [...] 07/16/2024 Assessment & Plan (07/16/2024 1:23 PM AUTO ENGINE MECHANIC): Started on Z-pack and ciprodex drops. Will [...] 10/13/2023 Assessment & Plan (07/16/2024 1:24 PM AUTO ENGINE MECHANIC): Encouraged heart healthy diet and lifestyle. Advised 150 min/week of aerobic exercise. 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/13/2011 Pain of upper extremity 06/13/2011 Cervicalgia 06/13/2011 Encounters Date Type Department Care Team Description 07/16/2024 1:00 PM AUTO ENGINE MECHANIC Office Visit [facility] [address] [place] [address] Ml Birmingham NP Acute bilateral otitis media (Primary Dx); Class 1 obesity due to excess calories without serious comorbidity with body mass index (BMI) of 34.0 to 34.9 in adult from Last 3 Months Immunizations Immunization Administration Dates Next Due Influenza, Trivalent, IM (MDV) 02/22/2009 Influenza, Unspecified 07/16/2024(Deferr ed: Patient Refused),07/16/2024(Deferred: Patient Refused),07/16/2024(Deferred: Patient Refused),01/25/2024(Deferred: Patient Refused),01/25/2024(Deferred: Patient Refused),01/25/2024(Deferred: Patient Refused),10/13/2023(Deferred: Patient Refused),01/24/2023(Deferred: Patient Refused) Tdap 03/25/2017 Surgical History Surgery Date Site/Laterality Comments TOTAL ABDOMINAL HYSTERECTOMY W/ BILATERAL SALPINGOOPHORECTOMY 05/26/2002 - 05/25/2003 Hysterectomy, total abdominal, BSO REDUCTION MAMMOPLASTY 05/26/2006 - 05/25/2007 Breast reduction OTHER SURGICAL HISTORY Cysts Removed REDUCTION MAMMOPLASTY Breast reduction HYSTERECTOMY Hysterectomy COLONOSCOPY 02/23/2015 - 03/25/2015 Medical History Medical History Date Comments 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-SPECIALIST Hx Other Medical endometriosis ( cannot have children) Hx Other Medical Endometrosis Hx Other Medical Laparoscopic Sc ar tissue removal Anemia Sleep apnea Kidney stone Friday Family History Medical History Relation Name Comments Cancer Maternal Grandmother Octavia Cancer Other Cancer -unknown ; Cancer Paternal Grandmother Racquel Relation Name Status Comments Maternal Grandmother Octavia Other Paternal Grandmother Racquel Social History Tobacco Use Types Packs/Day Years Used Date Smoking Tobacco: Every Day E-cigarettes Smokeless Tobacco: Never Tobacco Cessation:Ready to Q uit: No; Counseling Given: Not Answered Alcohol Use Standard Drinks/Week Comments No 0 (1 standard drink = 0.6 oz pur e alcohol) [facility] Utilities Answer Date Recorded In the past 12 months has e [employer], gas, oil, or water [employer] threatened to shut off services in your [...] often do you attend chur ch or christianity services? Never 10/13/2023 Do you belong to any clubs o r organizations such as zoroastrian groups, unions, fraternal or athletic groups, or [...] staff should administer the PHQ-9) 0 07/16/2024 [facility] [place] of Occupat ional Health - Occupational Stress [...] any time in the past 12 m [facility], were you homeless or living in a jail (including now)? No 10/13/2023 Comments Unknown Sex and Gender Information Value Date Recorded Sex Assigned at Not on file Legal Sex Female 1:37 PM AUTO ENGINE MECHANIC Gender Identity Not on file Sexual Orientation Not on file Obstetrics History Last Filed Vital Signs Vital Sign Reading Time Taken Comments Blood Pressure 118/72 07/16/2024 12:48 PM AUTO ENGINE MECHANIC Pulse 105 07/16/2024 12:48 PM AUTO ENGINE MECHANIC Temperature 37.2 C (98.9 F) 07/16/2024 12:48 PM AUTO ENGINE MECHANIC Respiratory Rate 16 07/16/2024 12:4 8 PM AUTO ENGINE MECHANIC Oxygen Saturation 95% 07/16/2024 12: 48 PM AUTO ENGINE MECHANIC Inhaled Oxygen Concentration - - Weight 92.4 kg (203 lb 12.8 oz) 025 12:48 PM AUTO ENGINE MECHANIC Height 162.6 cm (5' 4.02 ) 07/16/2024 1 2:48 PM AUTO ENGINE MECHANIC Body Mass Index 34.96 07/16/2024 12:48 PM AUTO ENGINE MECHANIC Plan of Treatment Health Maintenance Due Date Last Done Comments Hepatitis C Screening 1975 Hepatitis B Screening 1994 Regular Well Visit/Exam 18-64 1994 Pneumococcal vaccine <65 (1 of 2 - PCV) 1995 Influenza Vaccine (#1) 2024 02/22/2009 Depression Screening 07/16/2025 07/16/2024, 10/13/2023, 03/25/2017 Breast Cancer Screening-Mammogram 07/17/2025 025, 04/09/2017 DTaP/Tdap/Td Vaccine (2 - Td or Tdap) 03/25/2027 Colon Cancer Screening-Colonoscopy 07/05/2031 07/05/2021, 03/03/2015, 03/03/2015 Procedures Procedure Name Priority Date/Time Associated Diagnosis Comments SCREENING MAMMOGRAM BILATERAL W VISHNU Schedule Routine, Read Routine (OP Routine) 07/17/2024 7:28 AM AUTO ENGINE MECHANIC COLONOSCOPY 07/05/2021 7:18 AM AUTO ENGINE MECHANIC from Last 3 Months or Most Recently Relevant to Health Maintenance Results * Screening Mammogram Bilateral W Vishnu (07/17/2024 7:28 AM AUTO ENGINE MECHANIC) Anatomical Region Laterality Modality Breast Bilateral Mammography 07/17/2024 7:28 AM AUTO ENGINE MECHANIC us Historical Provider MD LARKIN MAMMO PROCEDURES Roselyn l Result * COLONOSCOPY (07/05/2021 7:18 AM AUTO ENGINE MECHANIC) Anatomical Region Laterality Modality Other Narrative Procedure Note Ricardo Myers MD - 07/05/2021 7:18 AM CST [facility] Patient Name: Andria Casillas Procedure Date: 07/05/2021 7:18 AM Date of : 1975 Admit Type: Outpatient Age: 46 Gender: Female Attending MD: Ricardo Myers M.D. Room: [facility] END[facility]COPY ROOM 2 Note Status: Finalized [...] scope was passed under direct vision. TheColonoscope [id number] was introduced through the anus and advanced [...] 7:18 AM Procedure Code(s): --- Professional --- 65375, Colonoscopy, flexible; diagnostic, including collection of specimen(s) by brushing or washing, when performed (separateprocedure) Diagnosis Code(s): --- Professional --- K57.30, Diverticulosis of large intestine without perforation orabscess without bleeding D50.9, Iron deficiency anemia, unspecified K64.9, Unspecified hemorrhoids CPT copyright 2019 [place] [employer]. All rights reserved. The codes documented in this report are preliminary and upon game design instructor reviewmay be revised to meet current compliance requirements. Recognized by the [place] [employer] for promoting quality in endoscopy Ricardo Myers MD ENDOSCOPY PROCEDURES Final Re sult from Last 3 Months or Most Recently Relevant to Health Maintenance Insurance [facility] CHOICE PLUS Advance Directives For more information, please contact: [phone] * Full Code (Latest Code Status on File) Date Activated Date Inactivated Comments 07/05/2021 7:21 AM 07/05/2021 1:09 PM * Full Code Date Activated Date Inactivated Comments 07/05/2021 7:21 AM 07/05/2021 7:21 AM Care Teams Top Closer Relationship Specialty Start Date End Date Vinnie Morales MD [address] [place] [address] PCP - General Family Medicine 10/13/23
[2024-08-16 06:14] VITALS: BP 126/69; PULSE 69; RESP 16; TEMP 36.7; O2SAT 99
[2024-08-16 07:36] LABS: BEDSIDEPREGUCG Negative (Negative)
[2024-08-16 07:39] LABS: Basophils Absolute Auto 0.1 K/mm3 (0.0-0.1); Eosinophils Absolute Auto 0.2 K/mm3 (0-0.3); Eosinophils Percent Auto 3.4 % (0-4.4); Hematocrit 41.4 % (37.0-47.0); Hemoglobin 13.2 g/dL (12.0-15.0); Immature Granulocyte Absolute 0.02 K/mm3 (0.00-0.031); Immature Granulocyte Percent A 0.3 % (0-0.5); Lymphocytes Absolute Auto 1.95 K/mm3 (0.9-3.2); Lymphocytes Percent Auto 31.2 % (18.3-44.2); Mean Corpuscular HGB Conc 31.9 g/dl (32-36); Mean Corpuscular Hemoglobin 27.6 pg (26-34); Mean Corpuscular Volume 86.6 fl (80-100); Mean Platelet Volume 9.3 fl (7.4-10.4); Monocytes Absolute Auto 0.4 K/mm3 (0.1-0.6); Monocytes Percent Auto 5.8 % (2.6-8.5); Neutrophils Absolute Auto 3.7 K/mm3 (1.3-6.7); Neutrophils Percent Auto 58.3 % (45.5-73.1); Platelet Count Result 254 k/mm3 (150-375); Red Blood Count 4.78 M/mm3 (4.2-5.4); Red Cell Distribution Width 13.2 % (11.5-14.5); White Blood Count 6.3 K/mm3 (4.5-10.0)
[2024-08-16] MEDS: fentaNYL CITRATE INJ (*CRX) 100 MCG/2 ML VIAL 50 MCG IV PUSH (07:39)
[2024-08-16 07:49] LABS: Alanine Aminotransferase 42 U/L (6-35); Albumin Level 4.2 g/dL (3.5-5.1); Alkaline Phosphatase 142 U/L (38-126); Anion Gap 5 mmol/L (4-12); Aspartate Amino Transferase 33 U/L (14-36); Bilirubin,Total 0.4 mg/dL (0.2-1.3); Blood Urea Nitrogen 13 mg/dL (7-17); Calcium 9.3 mg/dL (8.4-10.2); Carbon Dioxide 30 mmol/L (22-30); Chloride 104 mmol/L (98-107); Estimated CRCL calculation 94 ml/min; Estimated Glomerular Filt Rate > 60; Glucose 104 mg/dL (65-110); Sodium 139 mmol/L (137-145)
[2024-08-16 08:06] LABS: Add Urine Microscopic? YES; Appearance Urine Clear (Clear); Bacteria Urine None Seen /hpf; Bilirubin Urine Negative (Negative); Blood Urine Negative (Negative); Color Urine Yellow (Yellow); Glucose Urine UA Negative (Negative); Ketones Urine Negative (Negative); Leukocyte Esterase Ur 1+ LEU/UL (Negative); Need Manual Microscopic Reviewed; Nitrate Urine Negative (Negative); Non Pathogenic Casts 0-2; Protein Urine Negative (Negative); RBC Urine 0-2 /hpf (0-2); Specific Grav Ur 1.005 (1.001-1.035); Squamous Epithelial Cell Urine None Seen /hpf (Few); Urobilinogen Urine 0.2 mg/dL (<2.0); WBC Urine 0-5 /hpf (0-3); pH Urine 6.5 (5.0-9.0)
--- OUTSIDE RECORDS SUMMARY | 2024-08-16 08:29 | XMS_ITS | Referral Summary ---
Author Organization [facility] Medical Office Building A Address [address] [place] [address] Care Team Providers Care Residential Roofer Helper Name Role Phone Vinnie Morales MD Primary Care Provider [phone] Encounters Date Type Department Care Team Description 07/16/2024 1:00 PM DEVELOPMENT REPRESENTATIVE Office Visit [facility] [address] [address] Ml Birmingham NP Acute bilateral [...] 07/16/2024 Assessment & Plan (07/16/2024 1:23 PM DEVELOPMENT REPRESENTATIVE): Started on Z-pack and ciprodex drops. Will [...] 10/13/2023 Assessment & Plan (07/16/2024 1:24 PM DEVELOPMENT REPRESENTATIVE): Encouraged heart healthy diet and lifestyle. Advised 150 min/week of aerobic exercise. Iron deficiency anemia 05/02/2021 Overview (05/02/2021): Added automatically from request for surgery [id number] Assessment & Plan (09/18/2021 2:14 PM CDT): Capsule endoscopy History of IBS 05/02/2021 Overview (05/02/2021): Added automatically from request for surgery [id number] Medication management 03/25/2017 Healthcare maintenance 03/25/2017 Irritable [...] drink = 0.6 oz pur e alcohol) [facility] ISISities Answer Date Recorded In the past 12 months has [employer], [employer], oil, or water [employer] threatened to shut off services in your [...] week 10/13/2023 How often do you attend [facility] or jainism services? Never 10/13/2023 Do you belong to any clubs o r organizations such as bahai groups, unions, fraternal or athletic groups, or [...] staff should administer the PHQ-9) 0 07/16/2024 [facility] of Occupat ional Health - Occupational Stress [...] any time in the past 12 m [facility], were you homeless or living in a jail (including now)? No 10/13/2023 Comments Unknown Sex and Gender Information Value Date Recorded Sex Assigned at Not on file Legal Sex Female 1:37 PM DEVELOPMENT REPRESENTATIVE Gender Identity Not on file Sexual Orientation Not on file Last Filed Vital Signs Vital Sign Reading Time Taken Comments Blood Pressure 118/72 07/16/2024 12:48 PM DEVELOPMENT REPRESENTATIVE Pulse 105 07/16/2024 12:48 PM DEVELOPMENT REPRESENTATIVE Temperature 37.2 C (98.9 F) 07/16/2024 12:48 PM DEVELOPMENT REPRESENTATIVE Respiratory Rate 16 07/16/2024 12:4 8 PM DEVELOPMENT REPRESENTATIVE Oxygen Saturation 95% 07/16/2024 12: 48 PM DEVELOPMENT REPRESENTATIVE Inhaled Oxygen Concentration - - Weight 92.4 kg (203 lb 12.8 oz) 025 12:48 PM DEVELOPMENT REPRESENTATIVE Height 162.6 cm (5' 4.02 ) 07/16/2024 1 2:48 PM DEVELOPMENT REPRESENTATIVE Body Mass Index 34.96 07/16/2024 12:48 PM DEVELOPMENT REPRESENTATIVE Plan of Treatment Not on file Procedures Procedure Name Priority Date/Time Associated Diagnosis Comments SCREENING MAMMOGRAM BILATERAL W VISHNU Schedule Routine, Read Routine (OP Routine) 07/17/2024 7:28 AM DEVELOPMENT REPRESENTATIVE COLONOSCOPY 07/05/2021 7:18 AM DEVELOPMENT REPRESENTATIVE from Last 3 Months or Most Recently Relevant to Health Maintenance Results * Screening Mammogram Bilateral W Vishnu (07/17/2024 7:28 AM DEVELOPMENT REPRESENTATIVE) Anatomical Region Laterality Modality Breast Bilateral Mammography 07/17/2024 7:28 AM DEVELOPMENT REPRESENTATIVE us Historical Provider MD LARKIN MAMMO PROCEDURES Roselyn l Result * COLONOSCOPY (07/05/2021 7:18 AM DEVELOPMENT REPRESENTATIVE) Anatomical Region Laterality Modality Other Narrative Procedure Note Ricardo Myers MD - 07/05/2021 7:18 AM CST Center Patient Name: Andria Casillas Procedure Date: 07/05/2021 7:18 AM Date of : 1975 Admit Type: Outpatient Age: 46 Gender: Female Attending MD: Ricardo Myers M.D. Room: [facility] ENDOSCOPY ROOM 2 Note Status: Finalized Patient [...] scope was passed under direct vision. TheColonoscope [id number] was introduced through the anus and advanced [...] 7:18 AM Procedure Code(s): --- Professional --- 74727, Colonoscopy, flexible; diagnostic, including collection of specimen(s) by brushing or washing, when performed (separateprocedure) Diagnosis Code(s): --- Professional --- K57.30, Diverticulosis of large intestine without perforation orabscess without bleeding D50.9, Iron deficiency anemia, unspecified K64.9, Unspecified hemorrhoids CPT copyright 2019 [place] [employer]. All rights reserved. The codes documented in this report are preliminary and upon cpc coder reviewmay be revised to meet current compliance requirements. Recognized by the [place] [employer] for promoting quality in endoscopy Ricardo Myers MD ENDOSCOPY PROCEDURES Final Re sult from Last 3 Months or Most Recently Relevant to Health Maintenance Insurance Advance Directives For more information, please contact: [phone] * Full Code (Latest Code Status on File) Date Activated Date Inactivated Comments 07/05/2021 7:21 AM 07/05/2021 1:09 PM * Full Code Date Activated Date Inactivated Comments 07/05/2021 7:21 AM 07/05/2021 7:21 AM Care Teams Residential Roofer Helper Relationship Specialty Start Date End Date Vinnie Morales MD [address] [place] [address] PCP - General Family Medicine 10/13/23
--- OUTSIDE RECORDS SUMMARY | 2024-08-16 08:29 | XMS_ITS | Clinical Summary ---
Author Organization [facility] [employer] Address [address] [place] [place] [address] Care Team Providers Care Production Sound Mixer Name Role Phone Ayan Henry MD Primary Care Provider [phone] Source Comments [facility] [employer]non-[facility] and Associated Physician Practices is amultiple site organization consisting of ambulatory clinics and hospital sitesin [place], [place], [place] and [place]. This disclosure is being madepursuant to the Care Everywhere program and may not contain all information available regarding this patient. Last updated 18.[facility] [employer] Allergies Active Allergy Reactions Criticality Noted Date [...] age to complete this topic Care Teams Production Sound Mixer Relationship Specialty Start Date End Date Ayan Henry MD PCP - General Internal Medicine 07/22/16
--- OUTSIDE RECORDS SUMMARY | 2024-08-16 08:29 | XMS_ITS | Encounter Summary ---
Author Organization [facility] Healthcare Address [address] [place] [address] Care Team Providers Care Florist Supplies Salesperson Name Role Phone Vinnie Morales MD Primary Care Provider [phone] [phone] Reason for Referral * MRI/CAT/PET Scan (Routine) - Closed Specialty Diagnoses / Procedures Referred By Contac t Referred To Contact Radiology Diagnoses Gross hematuria Procedures CT UROGRAM WO 3D Henry Orantes NP Phone: tel: fax: [address] [address] Referral ID Status Reason Start Date Expiration Date Visits Re quested Visits Authorized [id number] Closed 11/12/2023 12/11/2024 1 1 Encounter Details Date Type Department Care Team (Late st Contact Info) Description 11/12/2023 Community Orders [facility] EpicCare Link Henry Orantse NP [address] [place] [id number] Gross hematuria (Primary Dx); Left ureteral stone Social History Tobacco Use Types Packs/Day Years Used Date Smoking Tobacco: Every Day E-cigarettes Smokeless Tobacco: Never Alcohol Use Standard Drinks/Week Comments No 0 (1 standard drink = 0.6 oz pur e alcohol) [facility] Utilities Answer Date Recorded In the past [...] often do you attend chur ch or faith services? Never 10/13/2023 Do you belong to any clubs o r organizations such as yarsanism groups, unions, fraternal or athletic groups, or [...] staff should administer the PHQ-9) 0 10/13/2023 [facility] of Occupat ional [facility] - Occupational Stress Questionnaire Answer Date Recorded [...] any time in the past 12 m [facility], were you homeless or living in a fci (including now)? No 10/13/2023 Comments Unknown Sex and Gender Information Value Date Recorded Sex Assigned at Not on file Legal Sex Female 1:37 PM GATE ATTENDANT Gender Identity Not on file Sexual Orientation [...] Everette Joe M.D. MJ: RUFUS Report ID: [id number] Reading Location: [id number] Procedure Note Everette Joe MD - 11/15/2023 [...] Everette Joe M.D. MJ: RUFUS Report ID: [id number] Reading Location: [id number] Henry Kurtis Orantes DATA ANALYST ETL DEVELOPER IMG XR PROCEDURES Final Resu lt * [...] Tylor Reid M.D. MZ: MZ Report ID: [id number] Reading Location: [id number] Narrative 11/13/2023 1:45 PM CDT EXAM DESCRIPTION: [...] most pronounced at L5-S1 where it is [id number]. No aggressive bone lesion or acute fracture [...] Tylor Reid M.D. MZ: NIHARIKA Report ID: [id number] Reading Location: [place] [address] Procedure Note Tylor Reid MD - 11/13/2023 [...] most pronounced at L5-S1 where it is [id number]. Noaggressive bone lesion or acute fracture is [...] Tylor Reid M.D. MZ: NIHARIKA Report ID: [id number] Reading Location: [place] [address] Henry Orantes DATA ANALYST ETL DEVELOPER IMG CT PROCEDURES Edited Res ult - Final documented in this encounter Visit Diagnoses Diagnosis Gross hematuria- Primary Left ureteral stone Gross hematuria Left ureteral stone documented in this encounter Additional Health Concerns Infection Onset Date Last Indicated Resolved Time COVID: Suspected 01/14/2024 01/14/2024 01/14/2024 7:28 PM CDT COVID19 01/14/2024 01/14/2024 01/24/2024 3:05 AM CDT documented as of this encounter Care Teams Florist Supplies Salesperson Relationship Specialty Start Date End Date Vinnie Morales MD [address] [place] [address] PCP - General Family Medicine 10/13/23 documented as of this encounter
--- OUTSIDE RECORDS SUMMARY | 2024-08-16 08:29 | XMS_ITS | Clinical Summary ---
Author Organization [facility] Medical Office Building A Address [address] [place] [address] Care Team Providers Care Special Programs Director Name Role Phone Vinnie Morales MD Primary Care Provider [phone] [phone] Allergies Active Allergy Reactions Criticality Noted Date [...] 07/16/2024 Assessment & Plan (07/16/2024 1:23 PM SHAREPOINT CONSULTANT): Started on Z-pack and ciprodex drops. Will [...] 10/13/2023 Assessment & Plan (07/16/2024 1:24 PM SHAREPOINT CONSULTANT): Encouraged heart healthy diet and lifestyle. Advised 150 min/week of aerobic exercise. 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 Pain of upper extremity 06/13/2011 Cervicalgia 06/13/2011 Encounters Date Type Department Care Team Description 07/16/2024 1:00 PM SHAREPOINT CONSULTANT Office Visit [facility] [address] [place] [address] Ml Birmingham NP Acute bilateral [...] Medical History Date Comments 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 Never 10/13/2023 Do you belong to any clubs o r organizations such as taoist groups, unions, fraternal or athletic groups, or [...] staff should administer the PHQ-9) 0 07/16/2024 [facility] [place] of Occupat ional Health - Occupational Stress [...] any time in the past 12 m [facility], were you homeless or living in a usp (including now)? No 10/13/2023 Comments Unknown Sex and Gender Information Value Date Recorded Sex Assigned at Not on file Legal Sex Female 1:37 PM SHAREPOINT CONSULTANT Gender Identity Not on file Sexual Orientation Not on file Obstetrics History Last Filed Vital Signs Vital Sign Reading Time Taken Comments Blood Pressure 118/72 07/16/2024 12:48 PM SHAREPOINT CONSULTANT Pulse 105 07/16/2024 12:48 PM SHAREPOINT CONSULTANT Temperature 37.2 C (98.9 F) 07/16/2024 12:48 PM SHAREPOINT CONSULTANT Respiratory Rate 16 07/16/2024 12:4 8 PM SHAREPOINT CONSULTANT Oxygen Saturation 95% 07/16/2024 12: 48 PM SHAREPOINT CONSULTANT Inhaled Oxygen Concentration - - Weight 92.4 kg (203 lb 12.8 oz) 025 12:48 PM SHAREPOINT CONSULTANT Height 162.6 cm (5' 4.02 ) 07/16/2024 1 2:48 PM SHAREPOINT CONSULTANT Body Mass Index 34.96 07/16/2024 12:48 PM SHAREPOINT CONSULTANT Plan of Treatment Health Maintenance Due Date [...] Read Routine (OP Routine) 07/17/2024 7:28 AM SHAREPOINT CONSULTANT COLONOSCOPY 07/05/2021 7:18 AM SHAREPOINT CONSULTANT from Last 3 Months or Most Recently Relevant to Health Maintenance Results * Screening Mammogram Bilateral W Vishnu (07/17/2024 7:28 AM SHAREPOINT CONSULTANT) Anatomical Region Laterality Modality Breast Bilateral Mammography 07/17/2024 7:28 AM SHAREPOINT CONSULTANT us Historical Provider MD LARKIN MAMMO PROCEDURES Roselyn l Result * COLONOSCOPY (07/05/2021 7:18 AM SHAREPOINT CONSULTANT) Anatomical Region Laterality Modality Other Narrative Procedure Note Ricardo Myers MD - 07/05/2021 7:18 AM CST [facility] Patient Name: Andria Casillas Procedure Date: 07/05/2021 7:18 AM Date of : 1975 Admit Type: Outpatient Age: 46 Gender: Female Attending MD: Ricardo Myers M.D. Room: [facility] END[facility] ROOM 2 Note Status: Finalized [...] scope was passed under direct vision. TheColonoscope [id number] was introduced through the anus and advanced [...] 7:18 AM Procedure Code(s): --- Professional --- 38979, Colonoscopy, flexible; diagnostic, including collection of specimen(s) by brushing or washing, when performed (separateprocedure) Diagnosis Code(s): --- Professional --- K57.30, Diverticulosis of large intestine without perforation orabscess without bleeding D50.9, Iron deficiency anemia, unspecified K64.9, Unspecified hemorrhoids CPT copyright 2019 [employer]. All rights reserved. The codes documented in this report are preliminary and upon ship erector reviewmay be revised to meet current compliance requirements. Recognized by the [place] [employer] for promoting quality in endoscopy Ricardo Myers MD ENDOSCOPY PROCEDURES Final Re sult from Last 3 Months or Most Recently Relevant to Health Maintenance Insurance [facility] CHOICE PLUS [facility] HMO/PPO Address: [address] [place] [address] [facility]/PPO Address: [address] [place] [address] [facility]/PPO Address: [address] [place] [address] Advance Directives For more information, please contact: [phone] * Full Code (Latest Code Status on File) Date Activated Date Inactivated Comments 07/05/2021 7:21 AM 07/05/2021 1:09 PM * Full Code Date Activated Date Inactivated Comments 07/05/2021 7:21 AM 07/05/2021 7:21 AM Care Teams Special Programs Director Relationship Specialty Start Date End Date Vinnie Morales MD [address] [place] [address] PCP - General Family Medicine 10/13/23
[2024-08-16 08:30] VITALS: BP 97/57; PULSE 60; RESP 18; O2SAT 99
--- NOTE | 2024-08-16 09:06 | ED.BACK ---
HPI - Back Pain/Injury General Chief Complaint: Back Pain/Injury Stated Complaint: possible kidney stone Time Seen by Provider: 08/16/24 07:17 History of Present Illness HPI Narrative: Pt presents with intermittent left flank pain for last 3 weeks. Pt says it feels like kidney stones in past. Pt called urology and started on flomax. Related Data Home Medications ?Medication ?Instructions ?Recorded ?Confirmed ?Last Taken ?Type acetaminophen 300 mg-codeine 15 mg 1 tablet PO Q6H PRN Pain 11/20/23 11/28/23 11/28/23 History tablet omeprazole 20 mg capsule,delayed 20 mg PO DAILY 11/20/23 11/28/23 11/28/23 History release Allergies Allergy/AdvReac Type Severity Reaction Status Date / Time amoxicillin Allergy Other Verified 08/16/24 06:08 tramadol Allergy Dizziness Verified 08/16/24 06:08 Review of Systems Review of Systems: All systems reviewed & are unremarkable except as noted in HPI and below PMFSH Past Medical History Medical History (Updated 08/16/24 @ 09:15 by Angel Posada III, DO) RONAL (obstructive sleep apnea) Iron deficiency anemia Endometriosis Surgical History Surgical History (Updated 11/28/23 @ 06:46 by Chris Morocho MD) Hx of bilateral breast reduction surgery H/O: hysterectomy Social History Social History Years smoked: 20 Smoking status: Current every day smoker Tobacco type: cigarettes and e-cigarettes/vaping Alcohol intake: current Living arrangements: with family Spiritual care concerns: No Exam Const: General: healthy appearing and no acute distress Nutritional Appearance: well nourished Orientation/consciousness: patient oriented x3 Limitations: no limitations Chest: Chest palpation & inspection: normal inspection of the chest Resp: Effort & Inspection: normal respiratory effort Auscultation: clear to auscultation bilaterally Cardio: Rate: regular rate Rhythm: regular rhythm GI: Auscultation: normal bowel sounds Back/Spine/Pelvis: Back: CVA tenderness Skin: General skin exam: normal color Rashes: no rashes Wounds: no wounds Neuro: General: patient oriented x3, moves all extremities, no focal motor deficits and CN's II-XI intact bilaterally Speech: normal speech Extrem: General: normal to inspection and no clubbing, cyanosis or edema Psych: Mental Status: mental status grossly normal Affect: normal affect Attitude: cooperative Course Vital Signs Vital signs: Vital Signs Temperature 98.1 F 08/16/24 06:14 Pulse Rate 69 08/16/24 06:14 Respiratory Rate 16 08/16/24 06:14 Blood Pressure 126/69 08/16/24 06:14 Pulse Oximetry 99 08/16/24 06:14 Oxygen Delivery Room Air 08/16/24 06:14 Temperature 98.1 F 08/16/24 06:14 Pulse Rate 60 08/16/24 08:30 Respiratory Rate 18 08/16/24 08:30 Blood Pressure 97/57 L 08/16/24 08:30 Pulse Oximetry 99 08/16/24 08:30 Oxygen Delivery Room Air 08/16/24 06:14 MDM - Back Pain/Injury MDM Narrative Medical decision making narrative: Pt presents with intermittent flank pain for weeks feels like prior kidney stones. Pt on flomax without relief. will get labs ua and CT. UA and labs unremarkable. CT shows non obstructing left kidney stone. home on pain meds and follow up. Lab Data 08/16/24 07:32 08/16/24 07:32 Labs: Lab Results 08/16/24 08/16/24 Range/Units 07:32 07:33 WBC 6.3 (4.5-10.0) K/mm3 RBC 4.78 (4.2-5.4) M/mm3 Hgb 13.2 (12.0-15.0) g/dL Hct 41.4 (37.0-47.0) % MCV 86.6 (80-100) fl MCH 27.6 (26-34) pg MCHC 31.9 L (32-36) g/dl RDW 13.2 (11.5-14.5) % Plt Count 254 (150-375) k/mm3 MPV 9.3 (7.4-10.4) fl Immature Gran % (Auto) 0.3 (0-0.5) % Neut % (Auto) 58.3 (45.5-73.1) % Lymph % (Auto) 31.2 (18.3-44.2) % [place] % (Auto) 5.8 (2.6-8.5) % Eos % (Auto) 3.4 (0-4.4) % Baso % (Auto) 1.0 (0.2-1.2) % Lymph # (Auto) 1.95 (0.9-3.2) K/mm3 [place] # (Auto) 0.4 (0.1-0.6) K/mm3 Eos # (Auto) 0.2 (0-0.3) K/mm3 Baso # (Auto) 0.1 (0.0-0.1) K/mm3 Abs Immat Gran (auto) 0.02 (0.00-0.031) K/mm3 Absolute Neuts (auto) 3.7 (1.3-6.7) K/mm3 Absolute Nucleated RBC 0.000 (0.0-0.012) K/mm3 Nucleated RBC % 0.0 (0.0-0.2) % Sodium 139 (137-145) mmol/L Potassium 4.0 (3.4-5.0) mmol/L Chloride 104 (98-107) mmol/L Carbon Dioxide 30 (22-30) mmol/L Anion Gap 5 (4-12) mmol/L BUN 13 (7-17) mg/dL Creatinine 0.70 (0.7-1.0) mg/dL Estim Creat Clear Calc 94 ml/min Estimated GFR > 60 (59 - ) Glucose 104 (65-110) mg/dL Calcium 9.3 (8.4-10.2) mg/dL Total Bilirubin 0.4 (0.2-1.3) mg/dL AST 33 (14-36) U/L ALT 42 H (6-35) U/L Alkaline Phosphatase 142 H (38-126) U/L Total Protein 7.0 (6.3-8.2) g/dL Albumin 4.2 (3.5-5.1) g/dL Urine Color Yellow (Yellow) Urine Appearance Clear (Clear) Urine pH 6.5 (5.0-9.0) Ur Specific [place] 1.005 (1.001-1.035) Urine Protein Negative (Negative) mg/dL Urine Glucose (UA) Negative (Negative) mg/dL Urine Ketones Negative (Negative) mg/dL Ur Blood (Man) Negative (Negative) Urine Nitrate Negative (Negative) Urine Bilirubin Negative (Negative) Urine Urobilinogen 0.2 (<2.0) mg/dL Add Ur Microanalysis Reviewed Leukocyte Esterase Rfl 1+ H (Negative) CHRISTOPHER/UL Urine RBC 0-2 (0-2) /hpf Urine WBC 0-5 (0-3) /hpf Ur Squamous Epith Cells None seen (Few) /hpf Urine Bacteria None seen /hpf Urine Casts 0-2 POC Urine HCG, Qual Negative (Negative) Discharge Plan Discharge Clinical Impression: Kidney stone Patient Disposition: Home, Self-Care Condition: Stable Instructions: Antibiotic Form, Kidney Stones (ED), Flank Pain (ED) Patient Language: Korean Prescriptions: New hydrocodone-acetaminophen 5-325 mg tablet 1 tablet PO Q6H PRN (Reason: pain) Qty: 14 0RF tamsulosin [Flomax] 0.4 mg capsule 0.4 mg PO DAILY Qty: 10 0RF No Action tamsulosin [Flomax] 0.4 mg capsule 0.4 mg PO DAILY Qty: 7 0RF hydrocodone-acetaminophen 5-325 mg tablet 1 tablet PO Q6H PRN (Reason: pain) Qty: 14 0RF acetaminophen-codeine 300-15 mg tablet 1 tablet PO Q6H PRN (Reason: Pain) omeprazole 20 mg Capsule,Delayed Release(Dr/Ec) 20 mg PO DAILY hydrocodone-acetaminophen 5-325 mg tablet 1 - 2 tablet PO Q6H PRN (Reason: pain) Qty: 20 0RF Follow-up/Referrals: Harms,Vinnie Davis M.D. [Primary Care Provider] - Fan Encarnacion MD [Physician] -
== END 2024-08-16 09:37 | disposition home or self-care (01) ==
PROVIDERS: Emergency Provider Emergency Medicine; PCP Family Medicine
DX: N20.0 Calculus of kidney (principal); G47.33 Obstructive sleep apnea (adult) (pediatric); F17.210 Nicotine dependence, cigarettes, uncomplicated; F17.290 Nicotine dependence, other tobacco product, uncomplicated
CPT/HCPCS: 36415; 74177; 80053; 81001; 81025; 85025; 87086; 96374; 99284; J3010; Q9967

== ENCOUNTER 2025-02-21 15:37 | Outpatient (CLI) | payer OTHER, SELFPAY ==
--- NOTE | ~2025-02-21 | XR_ITS ---
Abdominal radiograph(s) INDICATION: Ureteral stone COMPARISON: CT abdomen and pelvis 08/16/2024 TECHNIQUE: 2 films AP abdomen FINDINGS: Scattered colonic stool. Small bowel loops not well seen. No evidence of organomegaly. Small stone left kidney lower pole persists. No acute bony abnormality. IMPRESSION: 1. Small stone left kidney persists. 2. Otherwise no acute abnormality. Reviewed, dictated and finalized at location R.
== END 2025-02-21 15:38 | disposition home or self-care (01) ==
LOC: MICIMG 15:39
PROVIDERS: PCP Family Medicine; Visit Provider Urology
DX: N20.1 Calculus of ureter (principal)
CPT/HCPCS: 74018